=== PATIENT | male | born 1965 | race Caucasian/White ===

== ENCOUNTER 2019-07-04 15:53 | Emergency (ER) | payer BC, OTHER ==
[2019-07-04] MEDS ORDERED: RINGERS SOLUTION,LACTATED 1,000 ML IV ONE ×2 (15:59→17:13)
[2019-07-04] MEDS ORDERED: THIAMINE HCL INJ 200 MG/2 ML VIAL IV ONE (15:59)
[2019-07-04 16:47] LABS: ABSOLUTE BASOPHILS # (AUTO) 0.1 10^3/uL (0.0-0.2); ABSOLUTE EOSINOPHILS # (AUTO) 0.4 10^3/uL (0.0-0.6); ABSOLUTE LYMPHOCYTES (AUTO) 2.3 10^3/uL (0.5-4.7); ABSOLUTE MONOCYTES (AUTO) 0.9 10^3/uL (0.1-1.4); ABSOLUTE NEUT (AUTO) 5.2 10^3/uL (1.7-8.2); BASOPHILS % (AUTO) 0.9 % (0-2); EOSINOPHILS % (AUTO) 4.7 % (0-6); HEMATOCRIT 43.1 % (37.9-51.0); HEMOGLOBIN 15.5 g/dL (13.5-17.0); LYMPHOCYTES % (AUTO) 25.4 % (13-45); MEAN CORPUSCULAR HEMOGLOBIN 32.2 pg (27.0-33.4); MEAN CORPUSCULAR HGB CONC 35.9 g/dL (32.0-36.0); MEAN CORPUSCULAR VOLUME 90 fl (80-97); MONOCYTES % (AUTO) 9.9 % (3-13); PLATELET COUNT 211 10^3/uL (150-450); RED BLOOD COUNT 4.81 10^6/uL (4.35-5.55); RED CELL DISTRIBUTION WIDTH 13.4 % (11.5-14.0); SEGMENTED NEUTROPHILS % (AUTO) 59.1 % (42-78); TOTAL CELLS COUNTED % (AUTO) 100 %; WHITE BLOOD COUNT 8.9 10^3/uL (4.0-10.5)
[2019-07-04 17:01] LABS: ALBUMIN 4.2 g/dL (3.5-5.0); ALKALINE PHOSPHATASE 122 U/L (38-126); ANION GAP 14 (5-19); ASPARTATE AMINO TRANSFERASE 183 U/L (17-59); BILIRUBIN,TOTAL 0.7 mg/dL (0.2-1.3); BLOOD UREA NITROGEN 8 mg/dL (7-20); CALCIUM 8.5 mg/dL (8.4-10.2); CARBON DIOXIDE 23 mmol/L (22-30); CHLORIDE 100 mmol/L (98-107); CREATINE KINASE 40 U/L (55-170); GLUCOSE 100 mg/dL (75-110); POTASSIUM 3.9 mmol/L (3.6-5.0); TOTAL PROTEIN 8.1 g/dL (6.3-8.2)
--- NOTE | 2019-07-04 17:13 | ER Document Report ---
Entered by NATI ALMENDAREZ SCRIBE 07/04/19 1600 Acting as scribe for:SHARMAINE HERRERA MD ED General - General Stated Complaint: UNRESPONSIVE Time Seen by Provider: 07/04/19 15:58 Mode of Arrival: Medic Information source: Emergency Med Personnel Cannot obtain history due to: Intoxicated Notes: This 54 year old male patient presents to the emergency department today via EMS quite intoxicated. EMS was called due to the patient being found "unresponsive" on the ground [address] near the [facility]. He had been seen laying on the ground for at least 2 hours. Bystanders went to roll him over and he began vomiting so they called 911. EMS reports the patient had multiple empty [employer] cans around him. Patient came into the emergency room seemingly unresponsive, but soon became uncooperative, spitting, and seemingly severely EtOH intoxicated. The while that he had with him had a [employer] identification card and his social security card. There was also cards for out reach programs in [place], [place]. At this time we have no way of knowing why he is here in [facility]. He has never been to this emergency room before. - Related Data Allergies/Adverse Reactions: No Known Allergies Allergy (Unverified 07/04/19 16:31) Past Medical History - General Information source: Emergency Med Personnel Cannot obtain history due to: Intoxicated - Social History Smoking Status: Current Every Day Smoker Cigarette use (# per day): Yes Frequency of alcohol use: Heavy Family History: Reviewed & Not Pertinent - Medical History Medical History: Negative Surgical Hx: Negative Review of Systems - Review of Systems -: Yes ROS unobtainable due to patient's medical condition Physical Exam - Vital signs Vitals: Temp 97.8 F 07/04/19 15:55 - General General appearance: Other - Smells of EtOH. Very intoxicated. - HEENT Head: Normocephalic, Atraumatic Eyes: Normal - Pupils are small and reactive. Conjunctiva: Injected - Has a bloodshot alcohol intoxicated appearance. - Respiratory Respiratory status: No respiratory distress Chest status: Nontender Breath sounds: Normal - Cardiovascular Rhythm: Regular Heart sounds: Normal auscultation Murmur: No - Abdominal Inspection: Normal Distension: No distension - Back Back: Normal - Extremities General upper extremity: Normal inspection General lower extremity: Normal inspection - Neurological Notes: Patient moves all extremities without difficulty. He is able to coordinate his spitting. He is extremely intoxicated so we cannot communicate with him. - Psychological Associated symptoms: Other - intoxicated - Skin Skin Temperature: Warm Skin Moisture: Dry Skin Color: Flushed Course - Re-evaluation Re-evalutation: 07/04/19 19:11 Patient's EtOH level was 369, urine drug screen is positive for marijuana. 07/04/19 19:54 The patient will not be sober enough to be discharged until after 6 AM tomorrow morning. - Vital Signs Vital signs: Temp Pulse Resp BP Pulse Ox 97.8 F 14 141/90 H 95 07/04/19 15:58 07/04/19 19:00 07/04/19 18:55 07/04/19 19:00 - Laboratory Result Diagrams: 07/04/19 16:07 07/04/19 16:07 Laboratory results interpreted by me: 07/04/19 16:07 AST 183 H ALT 112 H Creatine Kinase 40 L Serum Alcohol 369 H* - Diagnostic Test Radiology reviewed: Image reviewed, Reports reviewed - Chest x-ray does not show acute cardiopulmonary process. CT scan of the head does not show an acute process. - EKG Interpretation by Me EKG shows normal: Sinus rhythm, Bryant, Intervals, QRS Complexes, ST-T Waves Rate: Normal - 91 Rhythm: NSR P Waves: LAE When compared to previous EKG there are: Previous EKG unavailable - Transfer of Care Care transferred to following provider: Dr. Herrera Notes: 07/04/19 21:03 Patient will have an alcohol level approaching 100 about 6:00 in the morning. Critical Care Note - Critical Care Note Total time excluding time spent on procedures (mins): 35 Discharge - Discharge Clinical Impression: Drug abuse, marijuana, Unresponsive Acute alcohol intoxication Qualifiers: Complication of substance-induced condition: with unspecified complication Qualified Code(s): F10.929 - Alcohol use, unspecified with intoxication, unspecified Condition: Stable Disposition: HOME, SELF-CARE Additional Instructions: Acute Alcohol Intoxication Your evaluation revealed very high levels of alcohol. You can from drinking a large amount of alcohol rapidly! Further, there's the risk of falls, traffic accidents, and fights. A high portion (about 50 percent) of the serious injuries seen in hospital emergency rooms are caused by alcohol. Alcohol overdosage is usually due to an underlying emotional or psychiatric problem. You may benefit from counselling. If "binge" drinking is an ongoing problem for you, or if you drink ANY AMOUNT of alcohol EVERY day, you most likely have a tendency to alcoholism. You should avoid alcohol totally. We can refer you for treatment. Persons with alcohol problems are often also prone to other addictions -- you should discuss any use of medications or drugs with the doctor. You should be watched at home for the next several hours by someone who has not been drinking. Get extra fluids for the next 24 hours. Call the doctor if there is repeated vomiting, increasing headache, decreasing level of alertness, or any other worsening. I personally performed the services described in the documentation, reviewed and edited the documentation which was dictated to the scribe in my presence, and it accurately records my words and actions.
--- NOTE | 2019-07-04 17:19 | RADIOLOGY REPORT (SQ) ---
EXAM DESCRIPTION: CHEST SINGLE VIEW IMAGES COMPLETED DATE/TIME: 07/04/2019 5:05 pm REASON FOR STUDY: EtOH, unresponsive COMPARISON: None. EXAM PARAMETERS: NUMBER OF VIEWS: One view. TECHNIQUE: An AP view of the chest was obtained. RADIATION DOSE: NA LIMITATIONS: None. FINDINGS: LUNGS AND PLEURA: Calcified 2.6 x 1.5 cm nodule that projects within the left upper lobe. There is no acute consolidation, ground-glass opacification, pleural effusion or pneumothorax. MEDIASTINUM AND HILAR STRUCTURES: No mediastinal or hilar contour abnormality. HEART AND VASCULAR STRUCTURES: The cardiac silhouette is borderline enlarged. BONES: No acute findings. HARDWARE: None in the chest. OTHER: No other finding. IMPRESSION: No acute cardiopulmonary process. TECHNICAL DOCUMENTATION: JOB ID: [id number] 2010 [employer]- All Rights Reserved Reading location - IP/workstation name: [email or web address]
[2019-07-04 17:23] LABS: ALCOHOL 369 mg/dL (NONE DETECTED)
[2019-07-04 17:52] LABS: APPEARANCE,URINE CLEAR; BILIRUBIN,URINE NEGATIVE (NEGATIVE); COLOR,URINE STRAW; GLUCOSE, URINE NEGATIVE (NEGATIVE); KETONES,URINE NEGATIVE (NEGATIVE); LEUKOCYTE ESTERASE,URINE NEGATIVE (NEGATIVE); NITRITE,URINE NEGATIVE (NEGATIVE); PROTEIN,URINE NEGATIVE (NEGATIVE); URINE SPECIFIC GRAVITY 1.004; UROBILINOGEN,URINE NEGATIVE mg/dL (<2.0)
[2019-07-04 17:59] LABS: URINE AMPHETAMINES SCREEN NEGATIVE; URINE BARBITURATES SCREEN NEGATIVE; URINE BENZODIAZEPINES SCREEN NEGATIVE; URINE COCAINE SCREEN NEGATIVE; URINE METHADONE SCREEN NEGATIVE; URINE PHENCYCLIDINE SCREEN NEGATIVE
[2019-07-04 18:00] LABS: URINE MARIJUANA (THC) SCREEN UNCONFIRMED POSITIVE
--- NOTE | 2019-07-04 19:08 | RADIOLOGY REPORT (SQ) ---
EXAM DESCRIPTION: CT HEAD WITHOUT IMAGES COMPLETED DATE/TIME: 07/04/2019 5:54 pm REASON FOR STUDY: EtOH, unresponsive, altered mental status COMPARISON: None. TECHNIQUE: Axial images acquired through the brain without intravenous contrast. Images reviewed wi th bone, brain and subdural windows. Additional sagittal and coronal reconstructions were generated. Images stored on PACS. All CT scanners at this facility use dose modulation, iterative reconstruction, and/or weight based d osing when appropriate to reduce radiation dose to as low as reasonably achievable (ALARA). [facility]: Dose Right [facility]: CareDose [facility]: Dose Right [facility]: Teradose 4D [facility]: Smart Couple RADIATION DOSE: CT Rad equipment meets quality standard of care and radiation dose reduction techniq ues were employed. CTDIvol: 55.2 mGy. DLP: 1084 mGy-cm. mGy. LIMITATIONS: None. FINDINGS: VENTRICLES: Normal size and contour. CEREBRUM: No masses. No hemorrhage. No midline shift. No evidence for acute infarction. Normal gra y/white matter differentiation. No areas of low density in the white matter. CEREBELLUM: No masses. No hemorrhage. No alteration of density. No evidence for acute infarction. EXTRAAXIAL SPACES: No fluid collections. No masses. ORBITS AND GLOBE: No intra- or extraconal masses. Normal contour of globe without masses. CALVARIUM: No fracture. PARANASAL SINUSES: No fluid or mucosal thickening. SOFT TISSUES: No mass or hematoma. OTHER: No other significant finding. IMPRESSION: No acute intracranial hemorrhage, mass, or evidence of acute territorial infarct. EVIDENCE OF ACUTE STROKE: NO. COMMENT: Quality ID # [id number]: Final reports with documentation of one or more dose reduction techniques (e.g., Automated exposure control, adjustment of the mA and/or kV according to patient size, use of iterative reconstruction technique) TECHNICAL DOCUMENTATION: JOB ID: [id number] 2010 [employer]- All Rights Reserved Reading location - IP/workstation name: [email or web address]
--- NOTE | 2019-07-04 21:42 | EKG REPORT ---
SEVERITY:- BORDERLINE ECG - SINUS RHYTHM PROBABLE LEFT ATRIAL ABNORMALITY : Confirmed by: Briseida Mcdonald MD 04-Jul-2019 21:41:37
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
[2019-07-05 10:27] VITALS: BP 167/83
== END 2019-07-05 10:27 | disposition home or self-care (01) ==
LOC: ER 15:53
DX: F10.129 Alcohol abuse with intoxication, unspecified (principal); Y90.8 Blood alcohol level of 240 mg/100 ml or more; F12.10 Cannabis abuse, uncomplicated; F17.210 Nicotine dependence, cigarettes, uncomplicated
CPT/HCPCS: 93005; 99291; 96361; 96374; 36415; 80307 ×2; 82550; 85025; 80053; 81001; 84484; 71045; 70450; 93010; J3411; J7120

== ENCOUNTER 2019-07-07 19:57 | Emergency (ER) | payer BC ==
--- NOTE | 2019-07-07 20:24 | ER Document Report ---
ED Medical Screen (RME) - General Chief Complaint: Abdominal Pain >50 Stated Complaint: MEDICAL CLEARANCE/ABDOMINAL PAIN Time Seen by Provider: 07/07/19 20:23 Mode of Arrival: Ambulatory Information source: Patient Notes: 54-year-old male presented to ED for complaint of right upper quadrant abdominal pain times a week and a half. He states he is extremely bad he has had nausea gagging all day. He states he does smoke a pack a day drinks 10-15 beers a day and does use a little marijuana. He states the pain is so bad that he cannot do anything due to the pain. He is alert oriented respirations regular nonlabored speaking in full sentences. I have greeted and performed a rapid initial assessment of this patient. A comprehensive ED assessment and evaluation of the patient, analysis of test results and completion of medical decision making process will be conducted by an additional ED providers. - Related Data Allergies/Adverse Reactions: No Known Allergies Allergy (Unverified 07/04/19 16:31) Physical Exam - Vital signs Vitals: Temp Pulse Resp BP Pulse Ox 98.9 F 102 H 16 162/84 H 98 07/07/19 20:01 07/07/19 20:01 07/07/19 20:01 07/07/19 20:01 07/07/19 20:01 Course - Vital Signs Vital signs: Temp Pulse Resp BP Pulse Ox 98.9 F 102 H 16 162/84 H 98 07/07/19 20:01 07/07/19 20:01 07/07/19 20:01 07/07/19 20:01 07/07/19 20:01
[2019-07-07] MEDS ORDERED: ONDANSETRON 4 MG TAB.RAPDIS PO ONE (20:25)
--- NOTE | 2019-07-07 21:07 | ER Document Report ---
ED General - General Chief Complaint: Abdominal Pain >50 Stated Complaint: MEDICAL CLEARANCE/ABDOMINAL PAIN Time Seen by Provider: 07/07/19 20:23 Mode of Arrival: Ambulatory Information source: Patient Notes: triage note Pt presents to ED for right upper abdominal pain that started 1.5 weeks ago. The pt reports nausea. No vomiting. The pt is an every day drinker. The pt did a have positive suicide screening. He has depressed thoughts. He is suicidal. He reports he has a plan to overdose but does not have plans to act on these thoughts. He would like to be medically cleared so he can do to [facility]. The pt is aox4. Resps even and unlabored. sabi note 54-year-old male presented to ED for complaint of right upper quadrant abdominal pain times a week and a half. He states he is extremely bad he has had nausea gagging all day. He states he does smoke a pack a day drinks 10-15 beers a day and does use a little marijuana. He states the pain is so bad that he cannot do anything due to the pain. He is alert oriented respirations regular nonlabored speaking in full sentences. my not 54-year-old male arrives with 10 days history of chills and severe pain to his right upper abdomen pointing to his right upper quadrant radiating to his back right CVA area. He reports he thinks it may be his gallbladder. Patient smokes 1 pack a day since he was 9 years old and also drinks whiskey and beer and some marijuana. Patient reports he is been having 6 months of a red rash all over his skin arms legs. Patient supports a mccall and a ponytail. Patient reports his abdominal pain is a 9 out of 10. He has had poor appetite today. He reported to triage nurse that we he was suicidal but he does not have any plans to act on these thoughts. At this time we will consider medical over psychiatric TRAVEL OUTSIDE OF THE [place] IN LAST 30 DAYS: No - HPI Onset: This morning Onset/Duration: Sudden Quality of pain: Achy Severity: Severe Pain Level: 4 Associated symptoms: Chills, Fever Exacerbated by: Food Similar symptoms previously: No Recently seen / treated by doctor: No - Related Data Allergies/Adverse Reactions: No Known Allergies Allergy (Unverified 07/04/19 16:31) Past Medical History - General Information source: Patient - Social History Smoking Status: Current Every Day Smoker Cigarette use (# per day): Yes Chew tobacco use (# tins/day): No Smoking Education Provided: Yes Frequency of alcohol use: Heavy Drug Abuse: Marijuana Lives with: Family Family History: Reviewed & Not Pertinent Patient has homicidal ideation: No Review of Systems - Review of Systems Constitutional: See HPI, Chills, Malaise EENT: No symptoms reported Cardiovascular: No symptoms reported Respiratory: No symptoms reported Gastrointestinal: See HPI, Abdominal pain, Poor appetite, Poor fluid intake Genitourinary: No symptoms reported Male Genitourinary: No symptoms reported Musculoskeletal: No symptoms reported Skin: No symptoms reported Hematologic/Lymphatic: No symptoms reported Neurological/Psychological: See HPI, Suicidal ideation Physical Exam - Vital signs Vitals: Temp Pulse Resp BP Pulse Ox 98.9 F 102 H 16 162/84 H 98 07/07/19 20:01 07/07/19 20:01 07/07/19 20:01 07/07/19 20:01 07/07/19 20:01 Interpretation: Hypertensive, Tachycardic - General General appearance: Alert - HEENT Head: Normocephalic, Atraumatic Eyes: Normal Pupils: PERRL Nasal: Normal Mucous membranes: Dry Pharynx: Erythema Neck: Normal - Respiratory Respiratory status: No respiratory distress Chest status: Nontender Breath sounds: Normal Chest palpation: Normal - Cardiovascular Rhythm: Tachycardia Heart sounds: Normal auscultation Murmur: No - Abdominal Inspection: Normal Distension: No distension Bowel sounds: Normal Tenderness: Tender Organomegaly: No organomegaly - Back Back: Tender - Extremities General upper extremity: Normal inspection General lower extremity: Normal inspection - Neurological Neuro grossly intact: Yes Cognition: Normal Orientation: AAOx4 [place] Coma Scale Eye Opening: Spontaneous Vitaliy Coma Scale Verbal: Oriented [place] Coma Scale Motor: Obeys Commands Vitaliy Coma Scale Total: 15 Speech: Normal Motor strength normal: LUE, RUE, LLE, RLE Sensory: Normal - Psychological Associated symptoms: Anxious, Decreased appetite - Skin Skin Temperature: Warm Skin Color: Hernan, Dusky Course - Vital Signs Vital signs: Temp Pulse Resp BP Pulse Ox 98.9 F 102 H 20 132/83 H 95 07/07/19 20:21 07/07/19 20:01 07/08/19 01:01 07/08/19 01:01 07/08/19 01:01 - Laboratory Result Diagrams: 07/07/19 22:22 07/07/19 22:22 Laboratory results interpreted by me: 07/07/19 07/07/19 22:22 22:22 MCHC 36.1 H Eos % (Auto) 11.9 H Absolute Eos (auto) 0.9 H AST 184 H ALT 150 H Alkaline Phosphatase 131 H Total Protein 8.7 H Acetaminophen < 10 L - Diagnostic Test Radiology reviewed: Reports reviewed Radiology results interpreted by me: 07/08/19 00:22 Patient with cholelithiasis but no acute cholecystitis - EKG Interpretation by Me EKG shows normal: Sinus rhythm Rate: Normal Rhythm: NSR Critical Care Note - Critical Care Note Total time excluding time spent on procedures (mins): 90 Comments: Patient was evaluated by [facility] and patient has a room waiting for him at [facility].. I informed patient of his cholelithiasis but no acute michael cystitis and that he should follow-up with surgeon of choice as outpatient for possible cholecystectomy in the near future. We will write for [place] and Zofran to go as needed for nausea and pain. Discharge - Discharge Clinical Impression: Suicidal thoughts, LFT elevation, Cigarette smoker Abdominal pain Qualifiers: Abdominal location: right upper quadrant Qualified Code(s): R10.11 - Right upper quadrant pain Alcohol addiction Qualifiers: Substance use status: unspecified alcohol-induced disorder Qualified Code(s): F10.29 - Alcohol dependence with unspecified alcohol-induced disorder Cholelithiasis Qualifiers: Cholelithiasis location: gallbladder Cholecystitis presence: without cholecystitis Condition: Good Disposition: HOME, SELF-CARE Additional Instructions: Go directly to [facility] and use medications as directed to include [place] and Zofran packs to go.
[2019-07-07 21:21] LABS: APPEARANCE,URINE CLEAR; BILIRUBIN,URINE NEGATIVE (NEGATIVE); COLOR,URINE YELLOW; GLUCOSE, URINE NEGATIVE (NEGATIVE); KETONES,URINE NEGATIVE (NEGATIVE); PROTEIN,URINE NEGATIVE (NEGATIVE); URINE SPECIFIC GRAVITY 1.009; UROBILINOGEN,URINE NEGATIVE mg/dL (<2.0)
--- NOTE | 2019-07-07 22:06 | RADIOLOGY REPORT (SQ) ---
EXAM DESCRIPTION: US ABDOMEN LIMITED COMPLETED DATE/TME: 07/07/2019 20:26 CLINICAL HISTORY: 54 years Male Right upper quadrant/flank pain COMPARISON: None. TECHNIQUE: Transabdominal grayscale imaging performed to evaluate the abdomen. FINDINGS: Pancreas is unremarkable. Patent IVC. Liver is normal in size of focal lesion. The aorta is normal in caliber. Patent hepatopedal portal vein. Gallbladder wall is at the upper limits of normal. Common duct measures 4 mm. Echogenic foci in the fundus suggesting stones. Unremarkable right kidney. Positive Claros's sign. IMPRESSION: Cholelithiasis with positive sonographic Claros sign. No additional evidence to suggest acute cholecystitis. If there is continued concern recommend nuclear medicine hepatobiliary study
[2019-07-07 22:34] LABS: ABSOLUTE BASOPHILS # (AUTO) 0.1 10^3/uL (0.0-0.2); ABSOLUTE EOSINOPHILS # (AUTO) 0.9 10^3/uL (0.0-0.6); ABSOLUTE LYMPHOCYTES (AUTO) 2.7 10^3/uL (0.5-4.7); ABSOLUTE MONOCYTES (AUTO) 0.6 10^3/uL (0.1-1.4); ABSOLUTE NEUT (AUTO) 3.5 10^3/uL (1.7-8.2); BASOPHILS % (AUTO) 0.8 % (0-2); EOSINOPHILS % (AUTO) 11.9 % (0-6); HEMATOCRIT 41.5 % (37.9-51.0); LYMPHOCYTES % (AUTO) 34.5 % (13-45); MEAN CORPUSCULAR HEMOGLOBIN 32.2 pg (27.0-33.4); MEAN CORPUSCULAR HGB CONC 36.1 g/dL (32.0-36.0); MEAN CORPUSCULAR VOLUME 89 fl (80-97); MONOCYTES % (AUTO) 7.5 % (3-13); PLATELET COUNT 188 10^3/uL (150-450); RED BLOOD COUNT 4.65 10^6/uL (4.35-5.55); RED CELL DISTRIBUTION WIDTH 13.1 % (11.5-14.0); SEGMENTED NEUTROPHILS % (AUTO) 45.3 % (42-78); TOTAL CELLS COUNTED % (AUTO) 100 %; WHITE BLOOD COUNT 7.7 10^3/uL (4.0-10.5)
[2019-07-07 23:04] LABS: ALBUMIN 4.5 g/dL (3.5-5.0); ALCOHOL 108 mg/dL (NONE DETECTED); ALKALINE PHOSPHATASE 131 U/L (38-126); ANION GAP 13 (5-19); ASPARTATE AMINO TRANSFERASE 184 U/L (17-59); BILIRUBIN,DIRECT 0.1 mg/dL (0.0-0.4); BILIRUBIN,TOTAL 0.7 mg/dL (0.2-1.3); BLOOD UREA NITROGEN 14 mg/dL (7-20); CALCIUM 8.6 mg/dL (8.4-10.2); CARBON DIOXIDE 22 mmol/L (22-30); CHLORIDE 104 mmol/L (98-107); GLUCOSE 87 mg/dL (75-110); POTASSIUM 4.2 mmol/L (3.6-5.0); SALICYLATE 2.7 mg/dL (2.0-20.0); TOTAL PROTEIN 8.7 g/dL (6.3-8.2)
[2019-07-07 23:05] LABS: ACETAMINOPHEN < 10 ug/mL (10-30)
[2019-07-07] MEDS ORDERED: KETOROLAC TROMETHAMINE INJ/PF 30 MG/1 ML SDV IV ONE (23:38)
[2019-07-07] MEDS ORDERED: PROCHLORPERAZINE EDISYLATE INJ 10 MG/2 ML VIAL IV ONE (23:38)
[2019-07-08 00:18] LABS: URINE AMPHETAMINES SCREEN NEGATIVE; URINE BARBITURATES SCREEN NEGATIVE; URINE BENZODIAZEPINES SCREEN NEGATIVE; URINE COCAINE SCREEN NEGATIVE; URINE MARIJUANA (THC) SCREEN NEGATIVE; URINE METHADONE SCREEN NEGATIVE; URINE PHENCYCLIDINE SCREEN NEGATIVE
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
--- NOTE | 2019-07-08 01:15 | RADIOLOGY REPORT (SQ) ---
CLINICAL HISTORY: r cva and ruq pain. CREAT 0.58 COMPARISON: None. TECHNIQUE: CT ABDOMEN PELVIS WITH IV CONTRAST on 07/07/2019 9:16 PM CDT This exam was performed according to our departmental dose-optimization program, which includes automated exposure control, adjustment of the mA and/or kV according to patient size and/or use of iterative reconstruction technique. FINDINGS: Lower lungs are clear. Abdomen: Liver is fatty in attenuation. There is no biliary dilatation. Gallbladder contains a small gallstone. The pancreas and spleen are normal in appearance. The adrenal glands and kidneys are unremarkable. Abdominal aorta is normal in course and caliber without aneurysm. There is no free air. There is no retroperitoneal adenopathy. Pelvis: There is no bowel obstruction. Urinary bladder is unremarkable. There is no free fluid. Appendix is normal. Skeleton: There are no acute osseous findings. No suspicious bony lesions. IMPRESSION: No acute process.
[2019-07-08] MEDS ORDERED: ONDANSETRON ODT 4 MG TAB (6 TAB/ER DISP) PO PRN (02:02)
[2019-07-08] MEDS ORDERED: HYDROCODONE/ACETAMINOPHEN 5-325 MG (6 TAB/ER DISP) PO PRN (02:02)
[2019-07-08 03:48] VITALS: BP 169/96
--- NOTE | 2019-07-08 14:28 | EKG REPORT ---
SEVERITY:- NORMAL ECG - SINUS RHYTHM : Confirmed by: Briseida Mcdonald MD 08-Jul-2019 14:27:40
== END 2019-07-08 04:07 | disposition home or self-care (01) ==
LOC: ER 19:57
DX: K80.20 Calculus of gallbladder without cholecystitis without obstruction (principal); F10.29 Alcohol dependence with unspecified alcohol-induced disorder; R45.851 Suicidal ideations; R10.11 Right upper quadrant pain; F17.210 Nicotine dependence, cigarettes, uncomplicated; R79.89 Other specified abnormal findings of blood chemistry; R11.0 Nausea; R21 Rash and other nonspecific skin eruption; R63.0 Anorexia; F12.10 Cannabis abuse, uncomplicated; R53.81 Other malaise; R68.83 Chills (without fever); R00.0 Tachycardia, unspecified
CPT/HCPCS: 93005; 99291; 99292; 96374; 96375; 36415; 80307 ×4; 83690; 85025; 80053; 81001; 76705; 74177; 93010; S0119; J1885; J0780

== ENCOUNTER 2019-08-31 10:34 | Inpatient (IN) | payer BC ==
[2019-08-31] MEDS ORDERED: NORMAL SALINE 1000 ML 1,000 ML IV ONE ×2 (11:46→20:11)
[2019-08-31] MEDS ORDERED: MORPHINE SULFATE 10 MG/ML INJ IV ONE (11:46)
[2019-08-31 11:59] LABS: ABSOLUTE BASOPHILS # (AUTO) 0.1 10^3/uL (0.0-0.2); ABSOLUTE LYMPHOCYTES (AUTO) 1.6 10^3/uL (0.5-4.7); ABSOLUTE NEUT (AUTO) 9.6 10^3/uL (1.7-8.2); BASOPHILS % (AUTO) 0.7 % (0-2); EOSINOPHILS % (AUTO) 0.1 % (0-6); HEMOGLOBIN 19.9 g/dL (13.5-17.0); LYMPHOCYTES % (AUTO) 12.7 % (13-45); MEAN CORPUSCULAR HEMOGLOBIN 31.7 pg (27.0-33.4); MEAN CORPUSCULAR HGB CONC 34.8 g/dL (32.0-36.0); MEAN CORPUSCULAR VOLUME 91 fl (80-97); MONOCYTES % (AUTO) 8.2 % (3-13); PLATELET COUNT 242 10^3/uL (150-450); RED BLOOD COUNT 6.26 10^6/uL (4.35-5.55); SEGMENTED NEUTROPHILS % (AUTO) 78.3 % (42-78); TOTAL CELLS COUNTED % (AUTO) 100 %; WHITE BLOOD COUNT 12.2 10^3/uL (4.0-10.5)
[2019-08-31] MEDS ORDERED: ONDANSETRON HCL INJ/PF 4 MG/2 ML SDV IV ONE ×2 (12:02→20:15)
[2019-08-31 12:06] LABS: ALBUMIN 4.7 g/dL (3.5-5.0); ALKALINE PHOSPHATASE 122 U/L (38-126); ANION GAP 9 (5-19); ASPARTATE AMINO TRANSFERASE 663 U/L (17-59); BILIRUBIN,DIRECT 0.3 mg/dL (0.0-0.4); BILIRUBIN,TOTAL 1.2 mg/dL (0.2-1.3); BLOOD UREA NITROGEN 19 mg/dL (7-20); CALCIUM 9.6 mg/dL (8.4-10.2); CARBON DIOXIDE 26 mmol/L (22-30); CHLORIDE 103 mmol/L (98-107); GLUCOSE 200 mg/dL (75-110); POTASSIUM 5.3 mmol/L (3.6-5.0); TOTAL PROTEIN 9.8 g/dL (6.3-8.2)
[2019-08-31 12:12] LABS: ALCOHOL < 10 mg/dL (NONE DETECTED)
--- NOTE | 2019-08-31 12:47 | RADIOLOGY REPORT (SQ) ---
EXAM DESCRIPTION: CHEST SINGLE VIEW IMAGES COMPLETED DATE/TIME: 08/31/2019 12:34 pm REASON FOR STUDY: cough COMPARISON: 07/04/2019 EXAM PARAMETERS: NUMBER OF VIEWS: One view. TECHNIQUE: Single frontal radiographic view of the chest acquired. RADIATION DOSE: NA LIMITATIONS: None. FINDINGS: LUNGS AND PLEURA: Re- demonstration of an apparent left upper lobe calcified granuloma. N o new focal consolidation, pleural effusion, or pneumothorax. MEDIASTINUM AND HILAR STRUCTURES: No masses. Contour normal. HEART AND VASCULAR STRUCTURES: Heart normal in size. Normal vasculature. BONES: Subacute minimally displaced transverse fractures of right ribs 9 in 10 laterally. HARDWARE: None in the chest. OTHER: No other significant finding. IMPRESSION: No evidence of acute cardiopulmonary abnormality. Incidental finding of subacute mildly displaced transverse fractures of right ribs 9 and 10. TECHNICAL DOCUMENTATION: JOB ID: [id number] 2010 [employer]- All Rights Reserved Reading location - IP/workstation name: [email or web address]
--- NOTE | 2019-08-31 13:08 | RADIOLOGY REPORT (SQ) ---
EXAM DESCRIPTION: CTA HEAD IMAGES COMPLETED DATE/TIME: 08/31/2019 12:31 pm REASON FOR STUDY: right arm numbness/drift COMPARISON: 07/04/2019 TECHNIQUE: Post IV contrast scanning, thin section axial imaging through the brain to evaluate the a rterial structures. Source and MIP images are saved and reviewed on PACS. Advanced 3D imaging as volume-rendering, MIPs, SSD performed? yes All CT scanners at this facility use dose modulation, iterative reconstruction, and/or weight based d osing when appropriate to reduce radiation dose to as low as reasonably achievable (ALARA). [facility]: Dose Right [facility]: CareDose [facility]: Dose Right [facility]: Teradose 4D [facility]: [place] IT CONTRAST TYPE AND DOSE: 70 mL Omnipaque 350- low osmolar. RENAL FUNCTION: BUN 19; creatinine 0.8 LIMITATIONS: None. FINDINGS: [place]: The anterior, middle, posterior cerebral arteries are all patent. No ev idence of aneurysm or focal stenosis. POSTERIOR CIRCULATION: The distal vertebral arteries are patent as is the basilar artery. No aneurysm . BRAIN: No gross enhancing lesions as visualized. The superior cerebral hemispheres are not included in the field of view. BONES: Intact as visualized. SINUSES: No fluid or mucosal thickening. OTHER: No other significant finding. IMPRESSION: NO CTA EVIDENCE OF STENOSIS OR ANEURYSM OF THE [place] OF LUCERO. TECHNICAL DOCUMENTATION: JOB ID: [id number] Quality ID # [id number]: Final reports with documentation of one or more dose reduction techniques (e.g., Au tomated exposure control, adjustment of the mA and/or kV according to patient size, use of iterative reconstruction technique) 2010 [employer]- All Rights Reserved Reading location - IP/workstation name: [email or web address]
--- NOTE | 2019-08-31 13:09 | RADIOLOGY REPORT (SQ) ---
EXAM DESCRIPTION: CTA NECK IMAGES COMPLETED DATE/TIME: 08/31/2019 12:32 pm REASON FOR STUDY: right arm numbness/drift COMPARISON: None. TECHNIQUE: Axial dynamic scanning technique with dynamic contrast enhancement through the extra-craft worker nial carotid and vertebral arteries. Multiplanar reconstruction. 3-D MIPS and Volume-rendered imag es acquired at the workstation and saved to PACS. Images are reviewed in soft tissue, bone, lung w indows. All CT scanners at this facility use dose modulation, iterative reconstruction, and/or weight based d osing when appropriate to reduce radiation dose to as low as reasonably achievable (ALARA). [facility]: Dose Right [facility]: CareDose [facility]: Dose Right [facility]: Teradose 4D [facility]: [place] CONTRAST TYPE AND DOSE: 70 mL Omnipaque 350- low osmolar. RENAL FUNCTION: BUN 19; creatinine 0.8 LIMITATIONS: None. FINDINGS: AORTIC ARCH: Normal three-vessel origin. Bilateral subclavian arteries are patent. No d issection. RIGHT CAROTIDS: Patent common, internal and external carotid arteries without suggestion of significa nt stenosis or irregular plaque. No dissection. RIGHT VERTEBRAL: Patent. No dissection. LEFT CAROTIDS: Patent common, internal and external carotid arteries without suggestion of significan t stenosis or irregular plaque. No dissection. LEFT VERTEBRAL: Patent. No dissection. OTHER: No other significant finding. OTHER: 3-D reconstructions confirm findings. IMPRESSION: NORMAL CTA OF THE EXTRA-CRANIAL CAROTID AND VERTEBRAL ARTERIES. COMMENT: Quality ID #[id number]: Measurements of distal internal carotid diameter were used as the denomina tor for stenosis measurement. TECHNICAL DOCUMENTATION: JOB ID: [id number] Quality ID # 436: Final reports with documentation of one or more dose reduction techniques (e.g., Au tomated exposure control, adjustment of the mA and/or kV according to patient size, use of iterative reconstruction technique) 2010 [employer]- All Rights Reserved Reading location - IP/workstation name: [email or web address]
--- NOTE | 2019-08-31 13:15 | EKG REPORT ---
SEVERITY:- NORMAL ECG - SINUS RHYTHM : Confirmed by: Tim Jc 31-Aug-2019 13:14:58
--- NOTE | 2019-08-31 16:04 | RADIOLOGY REPORT (SQ) ---
EXAM DESCRIPTION: SHOULDER RIGHT 2 OR MORE VIEWS IMAGES COMPLETED DATE/TIME: 08/31/2019 3:29 pm REASON FOR STUDY: swelling/pain COMPARISON: None. NUMBER OF VIEWS: Three views. TECHNIQUE: Internal rotation, external rotation, and Y view images acquired of the right shoulder. LIMITATIONS: None. FINDINGS: MINERALIZATION: Normal. BONES: No acute fracture. No worrisome bone lesions. JOINTS: Mild acromioclavicular arthropathy. VISUALIZED LUNGS AND RIBS: No pneumothorax. No rib fracture on the images provided. SOFT TISSUES: No radiopaque foreign body. OTHER: No other significant finding. IMPRESSION: Mild acromioclavicular arthropathy. No evidence of acute osseous injury. TECHNICAL DOCUMENTATION: JOB ID: [id number] 2010 [employer]- All Rights Reserved Reading location - IP/workstation name: [email or web address]
--- NOTE | 2019-08-31 18:53 | RADIOLOGY REPORT (SQ) ---
EXAM DESCRIPTION: VENOUS UNILATERAL UPPER IMAGES COMPLETED DATE/TIME: 08/31/2019 6:40 pm REASON FOR STUDY: swelling/painful COMPARISON: None. TECHNIQUE: Dynamic and static guerrero scale and color images acquired of the right arm venous system. S elected spectral images acquired with additional compression and augmentation maneuvers. The contrala teral subclavian vein and internal jugular vein were also imaged. Images stored on PACS. LIMITATIONS: None. FINDINGS: INTERNAL JUGULAR VEIN: Normal phasicity, compression, augmentation. No visualized echogeni c material on guerrero scale. No defects on color images. Comparison opposite side normal. SUBCLAVIAN VEIN: Normal compression, augmentation. No visualized echogenic material on guerrero scale. No defects on color images. AXILLARY VEIN: Normal compression, augmentation. No visualized echogenic material on guerrero scale. No d efects on color images. BRACHIAL VEIN: Normal compression, augmentation. No visualized echogenic material on guerrero scale. No d efects on color images. BASILIC VEIN: Normal compression, augmentation. No visualized echogenic material on guerrero scale. No de fects on color images. CEPHALIC VEIN: Normal compression, augmentation. No visualized echogenic material on guerrero scale. No d efects on color images. OTHER: No other significant finding. CONTRALATERAL SUBCLAVIAN VEIN AND INTERNAL JUGULAR VEIN: Normal phasicity, compression and augmentation. No visualized echogenic material on guerrero scale. No de fects on color images. IMPRESSION: NO EVIDENCE DVT OR SVT IN THE RIGHT ARM. TECHNICAL DOCUMENTATION: JOB ID: [id number] 2010 [employer]- All Rights Reserved Reading location - IP/workstation name: [email or web address]
[2019-08-31 19:09] LABS: ANION GAP 8 (5-19); BLOOD UREA NITROGEN 17 mg/dL (7-20); CALCIUM 8.4 mg/dL (8.4-10.2); CARBON DIOXIDE 22 mmol/L (22-30); CHLORIDE 104 mmol/L (98-107); GLUCOSE 109 mg/dL (75-110); POTASSIUM 4.4 mmol/L (3.6-5.0)
--- NOTE | 2019-08-31 19:24 | ER Document Report ---
ED General - General Chief Complaint: Numbness of Arm Stated Complaint: SHORTNESS OF BREATH Time Seen by Provider: 08/31/19 11:11 Mode of Arrival: Ambulatory Information source: Patient TRAVEL OUTSIDE OF THE [place] IN LAST 30 DAYS: No - HPI Notes: Patient complains of right arm numbness. He states he is had this for 3 to 4 days. He states he is also noticed that the right arm is been swollen. He denies any trauma or injuries to this area. He states that he is also had generalized body aches with nausea vomiting and some loose stools is been going on for 3 to 4 days. He has had some cough as well. He denies any fever sweats or chills. He states that the right arm is also been pain that he describes is more of a discomfort. This is been constant. It is worse with movement and better with rest. It does radiate up the right arm. Is been moderate in intensity. - Related Data Allergies/Adverse Reactions: No Known Allergies Allergy (Unverified 07/04/19 16:31) Past Medical History - General Information source: Patient - Social History Smoking Status: Current Every Day Smoker Frequency of alcohol use: Occasional Drug Abuse: None Family History: Reviewed & Not Pertinent - Past Medical History Cardiac Medical History: Reports: Hx Hypertension Psychiatric Medical History: Reports: Hx Depression - anxiety, panic attacks Past Surgical History: Reports: Hx Orthopedic Surgery - left knee x2 Review of Systems - Review of Systems Constitutional: Chills, Malaise, Weakness Cardiovascular: denies: Chest pain, Palpitations Respiratory: Cough. denies: Short of breath -: Yes All other systems reviewed and negative Physical Exam - Vital signs Vitals: Temp Pulse Resp BP Pulse Ox 97.5 F 93 16 149/97 H 98 08/31/19 10:35 08/31/19 10:35 08/31/19 10:35 08/31/19 10:35 08/31/19 10:35 Interpretation: Normal - General General appearance: Appears well, Alert - HEENT Head: Normocephalic, Atraumatic Eyes: Normal Pupils: PERRL - Respiratory Respiratory status: No respiratory distress Chest status: Nontender Breath sounds: Normal Chest palpation: Normal - Cardiovascular Rhythm: Regular Heart sounds: Normal auscultation Murmur: No - Abdominal Inspection: Normal Distension: No distension Bowel sounds: Normal Tenderness: Nontender Organomegaly: No organomegaly - Back Back: Normal, Nontender - Extremities General upper extremity: Other - Left upper extremities unremarkable. Right upper extremity has significant swelling between the elbow and shoulder. It is slightly erythematous and slightly warmer than the left. He does have 2+ radial pulses bilaterally. Patient has some abrasions on the right shoulder that he states is from "scratching". The shoulder joint itself does appear somewhat tender. He can range the shoulder although it appears to be limited secondary to pain. General lower extremity: Normal inspection, Nontender, Normal color, Normal ROM, Normal temperature, Normal weight bearing. No: Duc's sign - Neurological Neuro grossly intact: Yes Cognition: Normal Orientation: AAOx4 Vitaliy Coma Scale Eye Opening: Spontaneous [place] Coma Scale Verbal: Oriented Vitaliy Coma Scale Motor: Obeys Commands Vitaliy Coma Scale Total: 15 Speech: Normal Motor strength normal: LUE, RUE, LLE, RLE Sensory: Normal - Psychological Associated symptoms: Normal affect, Normal mood - Skin Skin Temperature: Warm Skin Moisture: Dry Skin Color: Normal Course - Re-evaluation Re-evalutation: 08/31/19 19:23 Patient presents with right arm swelling. He has some numbness in the forearm but this would appear to be due to compression of some peripheral nerve secondary to the swelling. He does have somewhat of an elevated white blood cell count and the arm is slightly erythematous and warm. It is possible he has an infection. Although an abscess or joint infection do not seem obvious. He possibly could have some cellulitis of this extremity but the swelling seems more diffuse and circumferential however it does seem prudent to treat him with antibiotics. Patient is also been tested for COVID due to his constitutional s ymptoms. 08/31/19 20:22 Patient's CPK is elevated consistent with rhabdo. I am suspicious that may be the patient fell and laid on his arm for an extended period. His shoulder area is tender and diffusely swollen possibly indicative of a joint effusion although he does not appear to have a significant 1 on x-ray. I attempted from multiple approach side to tap the shoulder joint using ultrasound but was unsuccessful in obtaining joint fluid. I did relay this to the hospitalist and at this time I have covered the patient with antibiotics. I think orthopedics will need to be consulted tomorrow and can proceed with arthrocentesis if still deemed necessary. A CT is currently pending of the right upper extremity. CTA of the head neck was also obtained to make sure that the numbness was not secondary to any type of cerebral vascular pathology. He has been bolused with fluids for his rhabdo. - Vital Signs Vital signs: Temp Pulse Resp BP Pulse Ox 97.5 F 93 16 149/97 H 98 08/31/19 10:35 08/31/19 10:35 08/31/19 10:35 08/31/19 10:35 08/31/19 10:35 - Laboratory Result Diagrams: 08/31/19 11:20 08/31/19 15:33 Laboratory results interpreted by me: 08/31/19 08/31/19 08/31/19 11:20 11:20 15:33 WBC 12.2 H RBC 6.26 H Hgb 19.9 H Hct 57.0 H RDW 15.0 H Lymph % (Auto) 12.7 L Absolute Neuts (auto) 9.6 H Seg Neutrophils % 78.3 H Sodium 133.8 L Potassium 5.3 H Glucose 200 H AST 663 H ALT 204 H Creatine Kinase 91619 H Total Protein 9.8 H - Diagnostic Test Radiology reviewed: Image reviewed, Reports reviewed - EKG Interpretation by Me EKG shows normal: Sinus rhythm Rate: Normal - 81 Rhythm: NSR Logan/QRS: No: Right axis deviation, Left axis deviation Discharge - Discharge Clinical Impression: Rhabdomyolysis Qualifiers: Rhabdomyolysis type: non-traumatic Qualified Code(s): M62.82 - Rhabdomyolysis Condition: Stable Disposition: ADMITTED INPATIENT Admitting Provider: Jerry (Hospitalist) Unit Admitted: [facility]
[2019-08-31] MEDS ORDERED: LIDOCAINE 1%/EPINEPHRINE INJ 20 ML VIAL ONE (19:32)
[2019-08-31 19:45] LABS: CREATINE KINASE 11354 U/L (55-170)
[2019-08-31] MEDS ORDERED: CEFTRIAXONE 1 GM/D5W RTU 1 GM/50 ML RTUPB IV ONE (20:10)
--- NOTE | 2019-08-31 21:12 | RADIOLOGY REPORT (SQ) ---
CT UPPER EXTREMITY WITHOUT IV CONTRAST HISTORY: Arm pain and swelling COMPARISON: None. TECHNIQUE: CT scan of the right upper extremity was performed without IV contrast. This exam was performed according to our departmental dose-optimization program, which includes automated exposure control, adjustment of the mA and/or kV according to patient size and/or use of iterative reconstruction technique. FINDINGS: No acute fracture or dislocation is seen. There is no cortical erosion or periosteal reaction to suggest acute osteomyelitis. No focal fluid collection or foreign body is identified. The muscles and tendons are intact. There is mild subcutaneous edema overlying the right arm greatest at the level of the elbow joint. IMPRESSION: Focal soft tissue swelling of the right upper extremity, but without evidence of osteomyelitis, fracture, or foreign body.
[2019-08-31] MEDS ORDERED: NICOTINE 21 MG/24 HR PATCH.TD24 TD PRN (21:27)
[2019-08-31] MEDS ORDERED: MORPHINE SULFATE 10 MG/ML INJ IV PRN ×2 (21:27→21:34)
[2019-08-31] MEDS ORDERED: MELATONIN 5 MG TABLET PO PRN (21:27)
[2019-08-31] MEDS ORDERED: HYDRALAZINE HCL INJ/PF 20 MG/1 ML SDV IV PRN (21:27)
[2019-08-31] MEDS ORDERED: MAGNESIUM HYDROXIDE SUSP 30 ML UDCUP PO PRN (21:27)
[2019-08-31] MEDS ORDERED: GUAIFENESIN SYRP 200 MG/10 ML UDC PO PRN (21:27)
[2019-08-31] MEDS ORDERED: ACETAMINOPHEN 325 MG TABLET PO PRN (21:27)
[2019-08-31] MEDS ORDERED: PROMETHAZINE HCL INJ 25 MG/1 ML VIAL IV PRN (21:27)
[2019-08-31] MEDS ORDERED: MAG HYDROX/AL HYDROX/SIMETH SUSP 30 ML UDCUP PO PRN (21:27)
[2019-08-31] MEDS ORDERED: LEVALBUTEROL HCL NEB 0.63 MG/3 ML AMPUL NEB PRN (21:27)
[2019-08-31] MEDS: FAMOTIDINE 20 MG TABLET PO SCH (22:44)
[2019-08-31] MEDS: DIAZEPAM 5 MG TABLET PO SCH (22:44)
--- NOTE | 2019-08-31 23:19 | PDOC H&P ---
History of Present Illness Admission Date/PCP: 08/31/2019 20:52 No local PCP Patient complains of: Right arm swelling and numbness History of Present Illness: BRITTANEY KENNY is a 54 year old male who presents the emergency room with a 4-day history of swelling in his right arm. He admits the sudden onset and constant presence of moderate swelling in his right upper arm accompanied by constant numbness and moderate achy discomfort throughout the right upper extremity. He admits the associated symptoms of an intermittent nonproductive cough, generalized malaise, nausea with vomiting and occasional diarrhea/loose stools for the last 4 days. He denies other associated or accompanying signs and symptoms. His right upper extremity is comfort is worsened by movement and improved with rest. He denies prior similar episodes. He has not identified any additional aggravating or ameliorating factors for his right upper extremity swelling. In the emergency room he was found to have an unremarkable evaluation with the exception of an elevated CPK and liver function tests. He was tested for COVID-19. He was subsequently admitted for further evaluation and treatment. Past Medical History Cardiac Medical History: Reports: Hypertension Denies: Atrial Fibrillation, Congestive Heart Failure, Coronary Artery Disease, Myocardial Infarction, Hyperlipidema, Peripheral Vascular Disease Pulmonary Medical History: Denies: Asthma, Chronic Obstructive Pulmonary Disease (COPD) EENT Medical History: Denies: Cataracts, Ears - Hearing aids Neurological Medical History: Denies: Hemorrhagic CVA, Ischemic CVA, Seizures Endocrine Medical History: Denies: Diabetes Mellitus Type 1, Diabetes Mellitus Type 2, Hyperthyroidism, Hypothyroidism, Obesity Renal/ Medical History: Denies: Chronic Kidney Disease, Nephrolithiasis Malignancy Medical History: Reports: None GI Medical History: Reports: 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, Hepatitis - Chronic due to hepatitis C Denies: Crohn's Disease, Gastroesophageal Reflux Disease, Peptic Ulcer Disease, Ulcerative Colitis Musculoskeltal Medical History: Denies: Arthritis, Gout Skin Medical History: Denies: Eczema, Psoriasis Psychiatric Medical History: Reports: Alcohol Dependency, Depression, General Anxiety Disorder, Tobacco Dependency Denies: Substance Abuse Traumatic Medical History: Reports: None Hematology: Denies: Anemia, Bleeding Tendencies Infectious Medical History: Reports: Hepatitis C Past Surgical History Past Surgical History: Reports: Orthopedic Surgery - left knee x2 Social History Information Source: Patient Lives with: Alone Smoking Status: Current Every Day Smoker Electronic Cigarette use?: No Frequency of Alcohol Use: Heavy - Drinks a 12 pack of beer daily Hx Recreational Drug Use: No Drugs: None Hx Prescription Drug Abuse: No - Advance Directive Resuscitation Status: Full Code Surrogate healthcare decision maker:: Sayra Carrillo Family History Family History: denies: CAD, DM, Hypertension, Malignancy Parental Family History Reviewed: Yes Children Family History Reviewed: No Sibling(s) Family History Reviewed.: Yes Medication/Allergy Home Medications: No Home Medications 07/04/19 Allergies/Adverse Reactions: No Known Allergies Allergy (Unverified 07/04/19 16:31) Review of Systems Constitutional: ABSENT: chills, fever(s) Eyes: ABSENT: visual disturbances, other - Eye pain Ears: ABSENT: hearing changes, other - Ear pain Nose, Mouth, and Throat: ABSENT: headache(s), sore throat Cardiovascular: ABSENT: chest pain, palpitations Respiratory: PRESENT: as per HPI, cough. ABSENT: dyspnea, hemoptysis, sputum Gastrointestinal: PRESENT: as per HPI, diarrhea, nausea, vomiting. ABSENT: abdominal pain, constipation Genitourinary: ABSENT: dysuria, hematuria Musculoskeletal: PRESENT: as per HPI, other - Right upper arm swelling. ABSENT: back pain, joint swelling Integumentary: ABSENT: pruritus, rash Neurological: ABSENT: confusion, convulsions, focal weakness, memory loss, syncope Psychiatric: ABSENT: anxiety, depression Endocrine: ABSENT: cold intolerance, heat intolerance, polydipsia, polyphagia, polyuria Hematologic/Lymphatic: ABSENT: easy bleeding, easy bruising Allergic/Immunologic: ABSENT: seasonal rhinorrhea Physical Exam Vital Signs: Temp Pulse Resp BP Pulse Ox 97.5 F 93 16 149/97 H 98 08/31/19 10:35 08/31/19 10:35 08/31/19 10:35 08/31/19 10:35 08/31/19 10:35 Intake & Output 08/29/19 08/30/19 08/31/19 23:59 23:59 23:59 Intake Total 1000 Balance 1000 Weight 77.111 kg General appearance: PRESENT: cooperative, mild distress - Secondary to right upper extremity discomfort Head exam: PRESENT: normocephalic, other - Small healing abrasions of the f [place] are noted Eye exam: PRESENT: conjunctiva pink. ABSENT: conjunctival injection, scleral icterus Ear exam: PRESENT: normal external ear exam. ABSENT: bleeding, drainage Mouth exam: PRESENT: dry mucosa, neck supple Neck exam: ABSENT: thyromegaly, tracheal deviation Respiratory exam: PRESENT: clear to auscultation baljit, symmetrical, unlabored Cardiovascular exam: PRESENT: RRR. ABSENT: clicks, gallop, rubs Pulses: PRESENT: normal radial pulses, normal dorsalis pedis pul Vascular exam: PRESENT: normal capillary refill. ABSENT: pallor GI/Abdominal exam: PRESENT: normal bowel sounds, soft Rectal exam: PRESENT: deferred Extremities exam: PRESENT: other - Right upper arm with mild to moderate edema and tenderness on ROM and deep palpation from the shoulder to the elbow. ABSENT: joint swelling, pedal edema Musculoskeletal exam: ABSENT: deformity, dislocation Neurological exam: PRESENT: alert, oriented to person, oriented to place, oriented to time, oriented to situation, CN II-XII grossly intact, motor sensory deficit - Decreased sensation in the right upper extremity on gross evaluation Psychiatric exam: PRESENT: appropriate affect, normal mood Skin exam: PRESENT: dry, intact, warm, other - Multiple tattoos noted. ABSENT: jaundice, rash, urticaria Results Laboratory Results: 08/31/19 11:20 08/31/19 15:33 08/31/19 08/31/19 08/31/19 11:20 11:20 15:33 WBC 12.2 H RBC 6.26 H Hgb 19.9 H Hct 57.0 H MCV 91 MCH 31.7 MCHC 34.8 RDW 15.0 H Plt Count 242 Seg Neutrophils % 78.3 H Sodium 138.2 133.8 L Potassium 5.3 H 4.4 Chloride 103 104 Carbon Dioxide 26 22 Anion Gap 9 8 BUN 19 17 Creatinine 0.88 0.74 Est GFR ( Amer) > 60 > 60 Glucose 200 H 109 Calcium 9.6 8.4 Total Bilirubin 1.2 AST 663 H Alkaline Phosphatase 122 Total Protein 9.8 H Albumin 4.7 08/31/19 08/31/19 11:20 15:33 Creatine Kinase 48814 H Troponin I < 0.012 Impressions: Chest X-Ray 08/31/19 11:46 IMPRESSION: No evidence of acute cardiopulmonary abnormality. Incidental finding of subacute mildly displaced transverse fractures of right ribs 9 and 10. Head CTA 08/31/19 11:46 IMPRESSION: NO CTA EVIDENCE OF STENOSIS OR ANEURYSM OF THE [place] OF LUCERO. Neck CTA 08/31/19 11:46 IMPRESSION: NORMAL CTA OF THE EXTRA-CRANIAL CAROTID AND VERTEBRAL ARTERIES. Venous Doppler Study 08/31/19 14:57 IMPRESSION: NO EVIDENCE DVT OR SVT IN THE RIGHT ARM. Shoulder X-Ray 08/31/19 14:58 IMPRESSION: Mild acromioclavicular arthropathy. No evidence of acute osseous injury. Assessment and Plan - Diagnosis (1) Rhabdomyolysis Qualifiers: Rhabdomyolysis type: non-traumatic Qualified Code(s): M62.82 - Rhabdomyolysis Is this a current diagnosis for this admission?: Yes (2) Hepatitis C Qualifiers: Viral hepatitis chronicity: chronic Hepatic coma status: without hepatic coma Qualified Code(s): B18.2 - Chronic viral hepatitis C Is this a current diagnosis for this admission?: Yes (3) Alcohol dependence Qualifiers: Substance use status: uncomplicated Qualified Code(s): F10.20 - Alcohol dependence, uncomplicated Is this a current diagnosis for this admission?: Yes (4) Tobacco use disorder, severe, dependence Is this a current diagnosis for this admission?: Yes (5) Nausea and vomiting Qualifiers: Vomiting type: unspecified Is this a current diagnosis for this admission?: Yes (6) Nonproductive cough Is this a current diagnosis for this admission?: Yes (7) Malaise Is this a current diagnosis for this admission?: Yes - Plan Summary Summary: Patient will be admitted to a medical bed where he will receive routine supportive and symptomatic cares. He will be treated with IV fluids using LR at 250 mL/h initially. Serial CPK levels will be obtained. Consultation with Dr. Jane will be obtained for orthopedic evaluation. He will receive morphine sulfate 2 to 4 mg IV every 2 hours as needed for pain. He will receive Valium 5 mg p.o. every 4 hours. He will also receive Valium 10 mg IV every hour as needed alcohol withdrawal symptoms. Serial CBCs, metabolic profiles, magnesium levels and other laboratory and/or radiographic evaluations will be obtained as appropriate. He will be on a cardiac diet. Smoking cessation is advised and counseled briefly at the bedside. A nicotine replacement patch is available for the patient's use, if desired. Empiric antibiotic therapy was initiated in the emergency room, however with no obvious infection further antibiotic therapy, if any, will be based upon Dr. Jane's recommendations. - Time Time Spent with patient: Less than 15 minutes Smoking Cessation Education: 3 to 10 minutes Medications reviewed and adjusted accordingly: Yes Anticipated discharge: Home - Inpatient Certification Based on my medical assessment, after consideration of the patient's comorbiditi es, presenting symptoms, or acuity I expect that the services needed warrant INPATIENT care.: Yes I certify that my determination is in accordance with my understanding of [facility]'s requirements for reasonable and necessary INPATIENT services [42 CFR 412.3e].: Yes Medical Necessity: Need Close Monitoring Due to Risk of Patient Decompensation, Need For IV Fluids, Risk of Complication if Not Cared For in Hospital
[2019-08-31] MEDS: RINGERS SOLUTION,LACTATED 1,000 ML IV PRN (23:58)
[2019-08-31] MEDS: HEPARIN SOD (PORCINE) 5,000 UNIT/ML 1 ML VIAL SUBCUT SCH (23:58)
[2019-09-01] MEDS: MORPHINE SULFATE 10 MG/ML INJ IV PRN ×5 (00:28→20:26)
[2019-09-01] MEDS: DIAZEPAM 5 MG TABLET PO SCH ×7 (01:06→21:14)
[2019-09-01] MEDS: RINGERS SOLUTION,LACTATED 1,000 ML IV PRN ×5 (04:44→21:33)
[2019-09-01] MEDS: HEPARIN SOD (PORCINE) 5,000 UNIT/ML 1 ML VIAL SUBCUT SCH ×3 (05:37→21:13)
[2019-09-01 06:42] LABS: HEMATOCRIT 42.3 % (37.9-51.0); MEAN CORPUSCULAR HEMOGLOBIN 31.9 pg (27.0-33.4); MEAN CORPUSCULAR HGB CONC 34.9 g/dL (32.0-36.0); MEAN CORPUSCULAR VOLUME 91 fl (80-97); PLATELET COUNT 127 10^3/uL (150-450); RED BLOOD COUNT 4.62 10^6/uL (4.35-5.55); RED CELL DISTRIBUTION WIDTH 14.5 % (11.5-14.0)
[2019-09-01 06:52] LABS: HEMOGLOBIN 14.8 g/dL (13.5-17.0)
[2019-09-01 06:58] LABS: BLOOD UREA NITROGEN 15 mg/dL (7-20); GLUCOSE 96 mg/dL (75-110)
[2019-09-01 07:03] LABS: CARBON DIOXIDE 25 mmol/L (22-30); CHLORIDE 105 mmol/L (98-107)
[2019-09-01 07:12] LABS: ANION GAP 4 (5-19)
[2019-09-01] MEDS: FAMOTIDINE 20 MG TABLET PO SCH ×2 (09:32→21:16)
[2019-09-01] MEDS: DOCUSATE SODIUM 100 MG CAPSULE PO SCH ×2 (09:33→17:06)
--- NOTE | 2019-09-01 14:37 | PDOC PROGRESS REPORT ---
Subjective Progress Note for:: 09/01/19 Subjective:: The patient points out that the proximal right forearm is still very swollen. It is still firm but he believes it may be slightly softer than yesterday. He also reports that although his urine is dark (tea colored) it is better than yesterday. He is still having discomfort in his right arm and shoulder. Reason For Visit: ACUTE RHABDOMYOLYSIS,CHRONIC HEPATITIS C Physical Exam Vital Signs: Temp Pulse Resp BP Pulse Ox 98.3 F 63 17 136/80 H 97 09/01/19 11:15 09/01/19 11:15 09/01/19 11:15 09/01/19 11:15 09/01/19 11:15 Intake & Output 08/31/19 09/01/19 09/02/19 06:59 06:59 06:59 Intake Total 3050 2496 Output Total 1 Balance 3049 2496 Weight 77.11 kg General appearance: PRESENT: cooperative, mild distress, well-developed Head exam: PRESENT: atraumatic, normocephalic Respiratory exam: PRESENT: symmetrical, unlabored. ABSENT: prolonged expiratory phas, tachypnea Rectal exam: PRESENT: deferred Gentrourinary exam: ABSENT: indwelling catheter Extremities exam: PRESENT: other - The proximal right forearm is still quite swollen. It is tender to the touch. It is firm but not tense. The biceps is less swollen but still firm. It is thaw shed heater tender. It is difficult to assess color as the patient has a sleeve of tattoos on that arm. Musculoskeletal exam: PRESENT: ambulatory, normal inspection Neurological exam: PRESENT: alert, awake, oriented to person, oriented to place, oriented to time, oriented to situation, CN II-XII grossly intact. ABSENT: altered, motor sensory deficit Psychiatric exam: PRESENT: appropriate affect. ABSENT: agitated, anxious Focused psych exam: ABSENT: delusional, paranoid, restlessness Skin exam: PRESENT: other - Multiple tattoos Results Laboratory Results: 09/01/19 06:10 09/01/19 06:10 08/31/19 09/01/19 09/01/19 15:33 06:10 06:10 WBC 6.0 RBC 4.62 Hgb 14.8 D Hct 42.3 MCV 91 MCH 31.9 MCHC 34.9 RDW 14.5 H Plt Count 127 L Sodium 133.8 L 133.8 L Potassium 4.4 4.0 Chloride 104 105 Carbon Dioxide 22 25 Anion Gap 8 4 L BUN 17 15 Creatinine 0.74 0.67 Est GFR ( Amer) > 60 > 60 Glucose 109 96 Calcium 8.4 8.0 L Magnesium 2.0 TSH 09/01/19 06:10 WBC RBC Hgb Hct MCV MCH MCHC RDW Plt Count Sodium Potassium Chloride Carbon Dioxide Anion Gap BUN Creatinine Est GFR ( Amer) Glucose Calcium Magnesium TSH 4.83 H 08/31/19 08/31/19 08/31/19 11:20 15:33 22:09 Creatine Kinase 69794 H 8603 H CK-MB (CK-2) Troponin I < 0.012 09/01/19 06:10 Creatine Kinase CK-MB (CK-2) 59.20 H Troponin I Impressions: Chest X-Ray 08/31/19 11:46 IMPRESSION: No evidence of acute cardiopulmonary abnormality. Incidental finding of subacute mildly displaced transverse fractures of right ribs 9 and 10. Head CTA 08/31/19 11:46 IMPRESSION: NO CTA EVIDENCE OF STENOSIS OR ANEURYSM OF THE [place]. Neck CTA 08/31/19 11:46 IMPRESSION: NORMAL CTA OF THE EXTRA-CRANIAL CAROTID AND VERTEBRAL ARTERIES. Venous Doppler Study 08/31/19 14:57 IMPRESSION: NO EVIDENCE DVT OR SVT IN THE RIGHT ARM. Shoulder X-Ray 08/31/19 14:58 IMPRESSION: Mild acromioclavicular arthropathy. No evidence of acute osseous injury. Upper Extremity CT 08/31/19 20:09 IMPRESSION: Focal soft tissue swelling of the right upper extremity, but without evidence of osteomyelitis, fracture, or foreign body. Assessment and Plan - Diagnosis (1) Rhabdomyolysis Qualifiers: Rhabdomyolysis type: non-traumatic Qualified Code(s): M62.82 - Rhabdomyolysis Is this a current diagnosis for this admission?: Yes Plan: 09/01/2019 The patient was wondering why this happened to his arm. 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 He also admits that he was likely dehydrated. Fortunately with aggressive IV fluids his creatinine kinase is down to 8600 from over 11,000. As noted above his urine is still tea colored. We will continue with aggressive IV fluids and repeat his creatinine kinase levels tomorrow. (2) Hepatitis C Qualifiers: Viral hepatitis chronicity: chronic Hepatic coma status: without hepatic coma Qualified Code(s): B18.2 - Chronic viral hepatitis C Is this a current diagnosis for this admission?: Yes Plan: 09/01/2019 The patient has significant transaminase elevation. AST is 663 and his ALT is 204. There is also alcohol dependence and so it is hard to know how much is hepatitis A and how much is alcoholic hepatitis. Continue conservative management. Monitor transaminases. (3) Alcohol dependence Qualifiers: Substance use status: uncomplicated Qualified Code(s): F10.20 - Alcohol dependence, uncomplicated Is this a current diagnosis for this admission?: Yes Plan: 09/01/2019 Monitor for signs of withdrawal. He is on scheduled and as needed Valium. (4) Nausea and vomiting Qualifiers: Vomiting type: unspecified Is this a current diagnosis for this admission?: Yes Plan: 09/01/2019 Patient reports no more nausea or vomiting at this point. (5) Nonproductive cough Is this a current diagnosis for this admission?: Yes Plan: 09/01/2019 Conservative approach. Could be related to smoking. (6) Malaise Is this a current diagnosis for this admission?: Yes Plan: 09/01/2019 Not surprising considering the multiple comorbidities. This should improve with resolution of his rhabdomyolysis (7) Tobacco use disorder, severe, dependence Is this a current diagnosis for this admission?: Yes Plan: 09/01/2019 Continue nicotine patch - Plan Summary Summary: Patient will be admitted to a medical bed where he will receive routine suppo rtive and symptomatic cares. He will be treated with IV fluids using LR at 250 mL/h initially. Serial CPK levels will be obtained. Consultation with Dr. Jane will be obtained for orthopedic evaluation. He will receive morphine sulfate 2 to 4 mg IV every 2 hours as needed for pain. He will receive Valium 5 mg p.o. every 4 hours. He will also receive Valium 10 mg IV every hour as needed alcohol withdrawal symptoms. Serial CBCs, metabolic profiles, magnesium levels and other laboratory and/or radiographic evaluations will be obtained as appropriate. He will be on a cardiac diet. Smoking cessation is advised and counseled briefly at the bedside. A nicotine replacement patch is available for the patient's use, if desired. Empiric antibiotic therapy was initiated in the emergency room, however with no obvious infection further antibiotic therapy, if any, will be based upon Dr. Jane's recommendations. - Time Time Spent with patient: 15-24 minutes Smoking Cessation Education: 3 to 10 minutes Medications reviewed and adjusted accordingly: Yes Anticipated discharge: Home
[2019-09-01] MEDS ORDERED: PROMETHAZINE HCL INJ 25 MG/1 ML VIAL IV PRN (15:00)
[2019-09-01] MEDS ORDERED: (PENDING PHARMACY ID) (Gabapentin [Gabapentin] 800 MG) PO SCH (18:00)
[2019-09-01] MEDS: GABAPENTIN 400 MG CAPSULE PO SCH (21:14)
[2019-09-01 22:23] LABS: APPEARANCE,URINE CLEAR; BILIRUBIN,URINE NEGATIVE (NEGATIVE); COLOR,URINE YELLOW; GLUCOSE, URINE NEGATIVE (NEGATIVE); KETONES,URINE NEGATIVE (NEGATIVE); PROTEIN,URINE NEGATIVE (NEGATIVE); URINE SPECIFIC GRAVITY 1.012; UROBILINOGEN,URINE NEGATIVE mg/dL (<2.0)
[2019-09-02] MEDS: DIAZEPAM 5 MG TABLET PO SCH ×6 (01:14→22:07)
[2019-09-02] MEDS: MORPHINE SULFATE 10 MG/ML INJ IV PRN ×4 (01:14→15:06)
[2019-09-02] MEDS: GABAPENTIN 400 MG CAPSULE PO SCH ×3 (05:43→22:07)
[2019-09-02 06:18] LABS: HEMATOCRIT 41.7 % (37.9-51.0); HEMOGLOBIN 14.7 g/dL (13.5-17.0); MEAN CORPUSCULAR HEMOGLOBIN 31.9 pg (27.0-33.4); MEAN CORPUSCULAR HGB CONC 35.3 g/dL (32.0-36.0); MEAN CORPUSCULAR VOLUME 90 fl (80-97); PLATELET COUNT 134 10^3/uL (150-450); RED BLOOD COUNT 4.62 10^6/uL (4.35-5.55); RED CELL DISTRIBUTION WIDTH 14.5 % (11.5-14.0); WHITE BLOOD COUNT 5.7 10^3/uL (4.0-10.5)
[2019-09-02 06:38] LABS: BLOOD UREA NITROGEN 10 mg/dL (7-20); CALCIUM 8.7 mg/dL (8.4-10.2); CHLORIDE 102 mmol/L (98-107); GLUCOSE 87 mg/dL (75-110); POTASSIUM 4.2 mmol/L (3.6-5.0)
[2019-09-02 06:43] LABS: CARBON DIOXIDE 28 mmol/L (22-30)
[2019-09-02 06:45] LABS: ANION GAP 4 (5-19)
[2019-09-02] MEDS: LOSARTAN POTASSIUM 25 MG TABLET PO SCH (09:50)
[2019-09-02] MEDS: DOCUSATE SODIUM 100 MG CAPSULE PO SCH ×3 (09:50→19:03)
[2019-09-02] MEDS: FAMOTIDINE 20 MG TABLET PO SCH ×2 (09:50→22:07)
[2019-09-02] MEDS: HEPARIN SOD (PORCINE) 5,000 UNIT/ML 1 ML VIAL SUBCUT SCH ×2 (15:07→21:49)
[2019-09-02] MEDS ORDERED: HYDROMORPHONE HCL INJ/PF 2 MG/ML AMPULE IV PRN (17:17)
--- NOTE | 2019-09-02 17:27 | PDOC PROGRESS REPORT ---
Subjective Progress Note for:: 09/02/19 Subjective:: The patient's right arm seems to be more swollen today. It is more noticeable in the upper arm. The patient reports that it hurts more. There is some skin breakdown noted on the upper arm by way of small areas that look like ruptured vesicles. Reason For Visit: ACUTE RHABDOMYOLYSIS,CHRONIC HEPATITIS C Physical Exam Vital Signs: Temp Pulse Resp BP Pulse Ox 98.6 F 57 L 16 131/83 H 96 09/02/19 16:25 09/02/19 16:25 09/02/19 16:25 09/02/19 16:25 09/02/19 16:25 Intake & Output 09/01/19 09/02/19 09/03/19 06:59 06:59 06:59 Intake Total 3050 6547 Output Total 1 150 Balance 3049 6397 Weight 77.11 kg 77.28 kg 77.28 kg General appearance: PRESENT: cooperative, well-developed, other - Patient in obvious distress. Head exam: PRESENT: atraumatic, normocephalic Respiratory exam: PRESENT: other - Lateral auscultation due to potential positive COVID Cardiovascular exam: PRESENT: other - No auscultation due to potential positive COVID Pulses: PRESENT: other - Radial pulse right arm is palpable and normal Extremities exam: PRESENT: other - Right upper extremity is still notable for forearm swelling but now the upper arm is swollen and tense as well. There are some scabs from vesicles on the shoulder and upper arm as well but they do not seem to be in a dermatomal pattern. Neurological exam: PRESENT: alert, awake, oriented to person, oriented to place, oriented to time, oriented to situation, CN II-XII grossly intact Psychiatric exam: PRESENT: anxious, appropriate affect - Affect reflects the increased discomfort. ABSENT: agitated Skin exam: PRESENT: vesicles - Possible ruptured vesicles right upper arm Results Laboratory Results: 09/02/19 06:02 09/02/19 06:02 09/01/19 09/02/19 09/02/19 21:44 06:02 06:02 WBC 5.7 RBC 4.62 Hgb 14.7 Hct 41.7 MCV 90 MCH 31.9 MCHC 35.3 RDW 14.5 H Plt Count 134 L Sodium 134.2 L Potassium 4.2 Chloride 102 Carbon Dioxide 28 Anion Gap 4 L BUN 10 Creatinine 0.72 Est GFR ( Amer) > 60 Glucose 87 Calcium 8.7 Magnesium 1.9 Urine Color YELLOW Urine Appearance CLEAR Urine pH 6.0 Ur Specific [place] 1.012 Urine Protein NEGATIVE Urine Glucose (UA) NEGATIVE Urine Ketones NEGATIVE Urine Blood NEGATIVE 08/31/19 21:04 Blood Blood Culture (PCR) - Final Staphylococcus Species 08/31/19 08/31/19 08/31/19 11:20 15:33 22:09 Creatine Kinase 50583 H 8603 H CK-MB (CK-2) Troponin I < 0.012 09/01/19 09/01/19 09/02/19 06:10 19:00 06:02 Creatine Kinase CK-MB (CK-2) 59.20 H 29.30 H 22.00 H Troponin I 09/02/19 15:38 Creatine Kinase 5178 H CK-MB (CK-2) Troponin I Impressions: Chest X-Ray 08/31/19 11:46 IMPRESSION: No evidence of acute cardiopulmonary abnormality. Incidental finding of subacute mildly displaced transverse fractures of right ribs 9 and 10. Head CTA 08/31/19 11:46 IMPRESSION: NO CTA EVIDENCE OF STENOSIS OR ANEURYSM OF THE [place] OF [place]. Neck CTA 08/31/19 11:46 IMPRESSION: NORMAL CTA OF THE EXTRA-CRANIAL CAROTID AND VERTEBRAL ARTERIES. Venous Doppler Study 08/31/19 14:57 IMPRESSION: NO EVIDENCE DVT OR SVT IN THE RIGHT ARM. Shoulder X-Ray 08/31/19 14:58 IMPRESSION: Mild acromioclavicular arthropathy. No evidence of acute osseous injury. Upper Extremity CT 08/31/19 20:09 IMPRESSION: Focal soft tissue swelling of the right upper extremity, but without evidence of osteomyelitis, fracture, or foreign body. Assessment and Plan - Diagnosis (1) Rhabdomyolysis Qualifiers: Rhabdomyolysis type: non-traumatic Qualified Code(s): M62.82 - Rhabdomyolysis Is this a current diagnosis for this admission?: Yes Plan: 09/01/2019 The patient was wondering why this happened to his arm. 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 He also admits that he was likely dehydrated. Fortunately with aggressive IV fluids his creatinine kinase is down to 8600 from over 11,000. As noted above his urine is still tea colored. We will continue with aggressive IV fluids and repeat his creatinine kinase levels tomorrow. 09/02/2019 Creatinine kinase continues to come down. It has dropped below 6000. Unfortunately the arm is slightly more swollen and tender. Unfortunately the IV fluids had a fixed volume and so I have restarted IV fluids and this will undoubtedly help. Pain medications have been changed. I have also ordered warm compresses. Because of the increased swelling I have ordered another CT scan of the right arm to rule out any new pathology. (2) Hepatitis C Qualifiers: Viral hepatitis chronicity: chronic Hepatic coma status: without hepatic coma Qualified Code(s): B18.2 - Chronic viral hepatitis C Is this a current diagnosis for this admission?: Yes Plan: 09/01/2019 The patient has significant transaminase elevation. AST is 663 and his ALT is 204. There is also alcohol dependence and so it is hard to know how much is hepatitis A and how much is alcoholic hepatitis. Continue conservative management. Monitor transaminases. 09/02/2019 We will repeat liver function panel tomorrow. We will also check INR. If the patient has auto anticoagulation from liver disease he could be having bleeding in the right arm. Will monitor closely. (3) Alcohol dependence Qualifiers: Substance use status: uncomplicated Qualified Code(s): F10.20 - Alcohol dependence, uncomplicated Is this a current diagnosis for this admission?: Yes Plan: 09/01/2019 Monitor for signs of withdrawal. He is on scheduled and as needed Valium. 09/02/2019 Continue to monitor. No evidence of withdrawal at this time. (4) Nausea and vomiting Qualifiers: Vomiting type: unspecified Is this a current diagnosis for this admission?: Yes Plan: 09/01/2019 Patient reports no more nausea or vomiting at this point. 09/02/2019 No further nausea or vomiting. Medications available as needed. (5) Nonproductive cough Is this a current diagnosis for this admission?: Yes Plan: 09/01/2019 Conservative approach. Could be related to smoking. 09/02/2019 Appears to have improved. I do not expect it to resolve completely. (6) Malaise Is this a current diagnosis for this admission?: Yes Plan: 09/01/2019 Not surprising considering the multiple comorbidities. This should improve with resolution of his rhabdomyolysis 09/02/2019 Patient is more animated today. This is from the increase in pain. We will continue supportive care. (7) Tobacco use disorder, severe, dependence Is this a current diagnosis for this admission?: Yes Plan: 09/01/2019 Continue nicotine patch - Plan Summary Summary: Patient will be admitted to a medical bed where he will receive routine supportive and symptomatic cares. He will be treated with IV fluids using LR at 250 mL/h initially. Serial CPK levels will be obtained. Consultation with Dr. Jane will be obtained for orthopedic evaluation. He will receive morphine sulfate 2 to 4 mg IV every 2 hours as needed for pain. He will receive Valium 5 mg p.o. every 4 hours. He will also receive Valium 10 mg IV every hour as needed alcohol withdrawal symptoms. Serial CBCs, metabolic profiles, magnesium levels and other laboratory and/or radiographic evaluations will be obtained as appropriate. He will be on a cardiac diet. Smoking cessation is advised and counseled briefly at the bedside. A nicotine replacement patch is available for the patient's use, if desired. Empiric antibiotic therapy was initiated in the emergency room, however with no obvious infection further antibiotic therapy, if any, will be based upon Dr. Jane's recommendations. - Time Time Spent with patient: 15-24 minutes Medications reviewed and adjusted accordingly: Yes
[2019-09-02] MEDS: HYDROMORPHONE HCL INJ/PF 2 MG/ML AMPULE IV PRN ×2 (17:46→22:46)
[2019-09-02] MEDS ORDERED: METHYLPREDNISOLONE INJ 40 MG/1 ML SDV IV ONE (18:00)
[2019-09-02] MEDS ORDERED: NORMAL SALINE 1000 ML 1,000 ML IV PRN (18:35)
[2019-09-03] MEDS: DIAZEPAM 5 MG TABLET PO SCH ×2 (01:46→06:35)
[2019-09-03] MEDS: DIAZEPAM INJ 10 MG/2 ML DISP.SYRIN IV PRN ×2 (03:17→06:37)
[2019-09-03] MEDS: CHLORPROMAZINE HCL INJ 25 MG/1 ML AMPULE IV PRN (03:56)
[2019-09-03] MEDS: HEPARIN SOD (PORCINE) 5,000 UNIT/ML 1 ML VIAL SUBCUT SCH ×3 (05:30→21:34)
[2019-09-03 06:21] LABS: HEMATOCRIT 39.3 % (37.9-51.0); HEMOGLOBIN 13.7 g/dL (13.5-17.0); MEAN CORPUSCULAR HEMOGLOBIN 32.2 pg (27.0-33.4); MEAN CORPUSCULAR HGB CONC 34.8 g/dL (32.0-36.0); MEAN CORPUSCULAR VOLUME 92 fl (80-97); PLATELET COUNT 130 10^3/uL (150-450); RED BLOOD COUNT 4.25 10^6/uL (4.35-5.55); RED CELL DISTRIBUTION WIDTH 14.1 % (11.5-14.0); WHITE BLOOD COUNT 4.9 10^3/uL (4.0-10.5)
[2019-09-03 06:27] LABS: INTERNATIONAL RATION (INR) 0.87; PROTHROMBIN TIME 11.8 SEC (11.4-15.4)
[2019-09-03] MEDS: GABAPENTIN 400 MG CAPSULE PO SCH ×3 (06:35→21:33)
[2019-09-03 06:40] LABS: ALBUMIN 3.6 g/dL (3.5-5.0); ALKALINE PHOSPHATASE 71 U/L (38-126); ASPARTATE AMINO TRANSFERASE 392 U/L (17-59); BILIRUBIN,DIRECT 0.1 mg/dL (0.0-0.4); BILIRUBIN,TOTAL 1.5 mg/dL (0.2-1.3); BLOOD UREA NITROGEN 10 mg/dL (7-20); CARBON DIOXIDE 28 mmol/L (22-30); GLUCOSE 166 mg/dL (75-110); POTASSIUM 4.8 mmol/L (3.6-5.0); TOTAL PROTEIN 7.1 g/dL (6.3-8.2)
[2019-09-03 06:50] LABS: ANION GAP 5 (5-19); CHLORIDE 104 mmol/L (98-107)
[2019-09-03 06:56] LABS: CREATINE KINASE 5410 U/L (55-170)
[2019-09-03 07:02] LABS: ERYTHROCYTE SEDIMENTATION RATE 37 mm/hr (0-20)
[2019-09-03] MEDS ORDERED: DIAZEPAM 5 MG TABLET PO PRN (09:42)
[2019-09-03] MEDS ORDERED: DIAZEPAM INJ 10 MG/2 ML DISP.SYRIN IV PRN (09:43)
[2019-09-03] MEDS: DOCUSATE SODIUM 100 MG CAPSULE PO SCH ×2 (09:48→17:03)
--- NOTE | 2019-09-03 09:54 | PDOC PROGRESS REPORT ---
Subjective Progress Note for:: 09/03/19 Subjective:: The patient tested COVID negative The patient is quite sleepy. He has been getting scheduled Valium every 4 hours. I will change this to as needed. His right arm is definitely softer after the dose of Solu-Medrol yesterday. Reason For Visit: ACUTE RHABDOMYOLYSIS,CHRONIC HEPATITIS C Physical Exam Vital Signs: Temp Pulse Resp BP Pulse Ox 97.6 F 51 L 17 141/84 H 100 09/03/19 08:33 09/03/19 08:33 09/03/19 08:33 09/03/19 08:33 09/03/19 08:33 Intake & Output 09/02/19 09/03/19 09/04/19 06:59 06:59 06:59 Intake Total 6547 Output Total 150 Balance 6397 Weight 77.28 kg 74.3 kg General appearance: PRESENT: no acute distress, cooperative - Sluggish Head exam: PRESENT: atraumatic, normocephalic Ear exam: PRESENT: TM's normal bilaterally. ABSENT: bleeding, drainage Respiratory exam: PRESENT: symmetrical, unlabored. ABSENT: rales, rhonchi, tachypnea, wheezes Cardiovascular exam: PRESENT: RRR, +S1, +S2. ABSENT: diastolic murmur, irregular rhythm, systolic murmur GI/Abdominal exam: PRESENT: normal bowel sounds, soft. ABSENT: distended, guarding, tenderness Rectal exam: PRESENT: deferred Gentrourinary exam: ABSENT: indwelling catheter Extremities exam: PRESENT: other - Right upper arm seems less swollen today. It is definitely softer than yesterday and not as tender. The right proximal for earm is still swollen but softer than yesterday as well. Again not as tender.. ABSENT: pedal edema Musculoskeletal exam: PRESENT: ambulatory, normal inspection. ABSENT: deformity Neurological exam: PRESENT: awake, oriented to person, oriented to place, oriented to time, oriented to situation, CN II-XII grossly intact. ABSENT: alert - Groggy this morning, altered, motor sensory deficit Psychiatric exam: PRESENT: appropriate affect. ABSENT: agitated, anxious Focused psych exam: ABSENT: delusional, paranoid, restlessness Skin exam: PRESENT: other - Excoriations on his forehead. No new vesicles or scabbed lesions suggesting previous vesicles on the right upper arm. Results Laboratory Results: 09/03/19 05:50 09/03/19 05:50 09/03/19 09/03/19 05:50 05:50 WBC 4.9 RBC 4.25 L Hgb 13.7 Hct 39.3 MCV 92 MCH 32.2 MCHC 34.8 RDW 14.1 H Plt Count 130 L Sodium 137.1 Potassium 4.8 Chloride 104 Carbon Dioxide 28 Anion Gap 5 BUN 10 Creatinine 0.49 L Est GFR ( Amer) > 60 Glucose 166 H Calcium 9.0 Magnesium 2.2 Total Bilirubin 1.5 H AST 392 H Alkaline Phosphatase 71 Total Protein 7.1 Albumin 3.6 08/31/19 21:04 Blood Blood Culture (PCR) - Final Staphylococcus Species 08/31/19 08/31/19 08/31/19 11:20 15:33 22:09 Creatine Kinase 97561 H 8603 H CK-MB (CK-2) Troponin I < 0.012 09/01/19 09/01/19 09/02/19 06:10 19:00 06:02 Creatine Kinase CK-MB (CK-2) 59.20 H 29.30 H 22.00 H Troponin I 09/02/19 09/03/19 15:38 05:50 Creatine Kinase 5178 H 5410 H CK-MB (CK-2) Troponin I Impressions: Chest X-Ray 08/31/19 11:46 IMPRESSION: No evidence of acute cardiopulmonary abnormality. Incidental finding of subacute mildly displaced transverse fractures of right ribs 9 and 10. Head CTA 08/31/19 11:46 IMPRESSION: NO CTA EVIDENCE OF STENOSIS OR ANEURYSM OF THE [place]. Neck CTA 08/31/19 11:46 IMPRESSION: NORMAL CTA OF THE EXTRA-CRANIAL CAROTID AND VERTEBRAL ARTERIES. Venous Doppler Study 08/31/19 14:57 IMPRESSION: NO EVIDENCE DVT OR SVT IN THE RIGHT ARM. Shoulder X-Ray 08/31/19 14:58 IMPRESSION: Mild acromioclavicular arthropathy. No evidence of acute osseous injury. Upper Extremity CT 08/31/19 20:09 IMPRESSION: Focal soft tissue swelling of the right upper extremity, but without evidence of osteomyelitis, fracture, or foreign body. Assessment and Plan - Diagnosis (1) Rhabdomyolysis Qualifiers: Rhabdomyolysis type: non-traumatic Qualified Code(s): M62.82 - Rhabdomyolysis Is this a current diagnosis for this admission?: Yes Plan: 09/01/2019 The patient was wondering why this happened to his arm. 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 He also admits that he was likely dehydrated. Fortunately with aggressive IV fluids his creatinine kinase is down to 8600 from over 11,000. As noted above his urine is still tea colored. We will continue with aggressive IV fluids and repeat his creatinine kinase levels tomorrow. 09/02/2019 Creatinine kinase continues to come down. It has dropped below 6000. Unfortunately the arm is slightly more swollen and tender. Unfortunately the IV fluids had a fixed volume and so I have restarted IV fluids and this will undoubtedly help. Pain medications have been changed. I have also ordered warm compresses. Because of the increased swelling I have ordered another CT scan of the right arm to rule out any new pathology. 09/03/2019 Creatinine kinase total is 5400. This is slightly increased from yesterday. I believe it has to do with the gap in IV fluids. Clinically the arm is better. I do not feel we need a CT scan at this point. We will continue aggressive IV fluids and I will start daily Solu-Medrol dosing. (2) Hepatitis C Qualifiers: Viral hepatitis chronicity: chronic Hepatic coma status: without hepatic coma Qualified Code(s): B18.2 - Chronic viral hepatitis C Is this a current diagnosis for this admission?: Yes Plan: 09/01/2019 The patient has significant transaminase elevation. AST is 663 and his ALT is 204. There is also alcohol dependence and so it is hard to know how much is hepatitis A and how much is alcoholic hepatitis. Continue conservative manageme nt. Monitor transaminases. 09/02/2019 We will repeat liver function panel tomorrow. We will also check INR. If the patient has auto anticoagulation from liver disease he could be having bleeding in the right arm. Will monitor closely. 09/03/2019 Transaminases are much improved. AST was 663 on admission and is now 392. ALT was 204 on admission and is now 136. Total bilirubin did increase slightly from 1.2-1.5. Continue to monitor. Try to avoid hepatotoxic medications and adjust medications metabolized through the liver. (3) Alcohol dependence Qualifiers: Substance use status: uncomplicated Qualified Code(s): F10.20 - Alcohol dependence, uncomplicated Is this a current diagnosis for this admission?: Yes Plan: 09/01/2019 Monitor for signs of withdrawal. He is on scheduled and as needed Valium. 09/02/2019 Continue to monitor. No evidence of withdrawal at this time. 09/03/2019 The scheduled Valium is catching up with the patient and he is quite groggy. I will change the Valium to as needed with an oral dose offered primarily and if unable then an IV dose will be available. (4) Nausea and vomiting Qualifiers: Vomiting type: unspecified Is this a current diagnosis for this admission?: Yes Plan: 09/01/2019 Patient reports no more nausea or vomiting at this point. 09/02/2019 No further nausea or vomiting. Medications available as needed. 09/03/2019 Resolved (5) Nonproductive cough Is this a current diagnosis for this admission?: Yes Plan: 09/01/2019 Conservative approach. Could be related to smoking. 09/02/2019 Appears to have improved. I do not expect it to resolve completely. 09/03/2019 Note acute change (6) Malaise Is this a current diagnosis for this admission?: Yes Plan: 09/01/2019 Not surprising considering the multiple comorbidities. This should improve with resolution of his rhabdomyolysis 09/02/2019 Patient is more animated today. This is from the increase in pain. We will continue supportive care. 09/03/2019 Today I believe he is lethargic from medications. We will decrease the Valium as outlined above. (7) Tobacco use disorder, severe, dependence Is this a current diagnosis for this admission?: Yes Plan: 09/01/2019 Continue nicotine patch 09/03/2019 Nicotine patch - Plan Summary Summary: Patient will be admitted to a medical bed where he will receive routine supportive and symptomatic cares. He will be treated with IV fluids using LR at 250 mL/h initially. Serial CPK levels will be obtained. Consultation with Dr. Jane will be obtained for orthopedic evaluation. He will receive morphine sulfate 2 to 4 mg IV every 2 hours as needed for pain. He will receive Valium 5 mg p.o. every 4 hours. He will also receive Valium 10 mg IV every hour as needed alcohol withdrawal symptoms. Serial CBCs, metabolic profiles, magnesium levels and other laboratory and/or radiographic evaluations will be obtained as appropriate. He will be on a cardiac diet. Smoking cessation is advised and counseled briefly at the bedside. A nicotine replacement patch is available for the patient's use, if desired. Empiric antibiotic therapy was initiated in the emergency room, however with no obvious infection further antibiotic therapy, if any, will be based upon Dr. Jane's recommendations. - Time Time Spent with patient: Less than 15 minutes Medications reviewed and adjusted accordingly: Yes Anticipated discharge: Home
[2019-09-03] MEDS: FAMOTIDINE 20 MG TABLET PO SCH ×2 (10:05→21:33)
[2019-09-03] MEDS: METHYLPREDNISOLONE INJ 40 MG/1 ML SDV IV SCH (10:05)
[2019-09-03] MEDS: LOSARTAN POTASSIUM 25 MG TABLET PO SCH (10:05)
[2019-09-03] MEDS: NORMAL SALINE 1000 ML 1,000 ML IV PRN ×2 (18:24→23:44)
[2019-09-03] MEDS: HYDROMORPHONE HCL INJ/PF 2 MG/ML AMPULE IV PRN ×2 (19:51→23:40)
[2019-09-04] MEDS ORDERED: CHLORPROMAZINE HCL INJ 25 MG/1 ML AMPULE ONE (01:16)
[2019-09-04] MEDS: CHLORPROMAZINE HCL INJ 25 MG/1 ML AMPULE IV PRN (01:24)
[2019-09-04] MEDS: HEPARIN SOD (PORCINE) 5,000 UNIT/ML 1 ML VIAL SUBCUT SCH ×2 (05:49→08:33)
[2019-09-04] MEDS: HYDROMORPHONE HCL INJ/PF 2 MG/ML AMPULE IV PRN (08:11)
[2019-09-04] MEDS: NORMAL SALINE 1000 ML 1,000 ML IV PRN (08:11)
[2019-09-04] MEDS: GABAPENTIN 400 MG CAPSULE PO SCH (08:11)
[2019-09-04 08:29] VITALS: BP 144/86
--- NOTE | 2019-09-04 09:18 | PDOC DISCHARGE SUMMARY ---
Impression - Admit/DC Date/PCP Admission Date/Primary Care Provider: 08/31/19 21:02 Discharge Date: 09/04/19 - Discharge Diagnosis (1) Rhabdomyolysis Is this a current diagnosis for this admission?: Yes (2) Hepatitis C Is this a current diagnosis for this admission?: Yes (3) Alcohol dependence Is this a current diagnosis for this admission?: Yes (4) Nausea and vomiting Is this a current diagnosis for this admission?: Yes (5) Nonproductive cough Is this a current diagnosis for this admission?: Yes (6) Malaise Is this a current diagnosis for this admission?: Yes (7) Tobacco use disorder, severe, dependence Is this a current diagnosis for this admission?: Yes - Assessment Summary: Patient will be admitted to a medical bed where he will receive routine supportive and symptomatic cares. He will be treated with IV fluids using LR at 250 mL/h initially. Serial CPK levels will be obtained. Consultation with Dr. Jane will be obtained for orthopedic evaluation. He will receive morphine sulfate 2 to 4 mg IV every 2 hours as needed for pain. He will receive Valium 5 mg p.o. every 4 hours. He will also receive Valium 10 mg IV every hour as needed alcohol withdrawal symptoms. Serial CBCs, metabolic profiles, magnesium levels and other laboratory and/or radiographic evaluations will be obtained as appropriate. He will be on a cardiac diet. Smoking cessation is advised and counseled briefly at the bedside. A nicotine replacement patch is available for the patient's use, if desired. Empiric antibiotic therapy was initiated in the emergency room, however with no obvious infection further antibiotic therapy, if any, will be based upon Dr. Jane's recommendations. - Additional Information Resuscitation Status: Full Code Discharge Diet: Regular Discharge Activity: Other - Rest the right arm until Thursday September 12, 2019 Ref[facility]: [facility] [NO LOCAL MD] - (Follow-up Thursday or Will need repeat creatinine kinase level) Prescriptions: Prednisone [Deltasone 20 mg Tablet] 20 mg PO DAILY 3 Days #3 tablet Home Medications: Gabapentin 800 mg PO TID 09/01/19 Losartan Potassium [Cozaar 25 mg Tablet] 25 mg PO DAILY 09/01/19 Melatonin [Melatonin 5 mg Tablet] 10 mg PO HSP PRN tablet 09/04/19 Nicotine [Nicoderm 21 mg/24 Hr Transderm Patch] 1 each TD DAILYP PRN patch.td24 09/04/19 Prednisone [Deltasone 20 mg Tablet] 20 mg PO DAILY 3 Days #3 tablet 09/04/19 History of Present Illiness History of Present Illness: BRITTANEY KENNY is a 54 year old male who presents the emergency room with a 4-day history of swelling in his right arm. He admits the sudden onset and constant presence of moderate swelling in his right upper arm accompanied by constant numbness and moderate achy discomfort throughout the right upper extremity. He admits the associated symptoms of an intermittent nonproductive cough, generalized malaise, nausea with vomiting and occasional diarrhea/loose stools for the last 4 days. He denies other associated or accompanying signs and symptoms. His right upper extremity is comfort is worsened by movement and improved with rest. He denies prior similar episodes. He has not identified any additional aggravating or ameliorating factors for his right upper extremity swelling. In the emergency room he was found to have an unremarkable evaluation with the exception of an elevated CPK and liver function tests. He was tested for COVID-19. He was subsequently admitted for further evaluation and treatment. Hospital Course Hospital Course: (1) Rhabdomyolysis Qualifiers: Rhabdomyolysis type: non-traumatic Qualified Code(s): M62.82 - Rhabdomyolysis Is this a current diagnosis for this admission?: Yes Plan: 09/01/2019 The patient was wondering why this happened to his arm. 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 He also admits that he was likely dehydrated. Fortunately with aggressive IV fluids his creatinine kinase is down to 8600 from over 11,000. As noted above his urine is still tea colored. We will continue with aggressive IV fluids and repeat his creatinine kinase levels tomorrow. 09/02/2019 Creatinine kinase continues to come down. It has dropped below 6000. Unfortunately the arm is slightly more swollen and tender. Unfortunately the IV fluids had a fixed volume and so I have restarted IV fluids and this will undoubtedly help. Pain medications have been changed. I have also ordered warm compresses. Because of the increased swelling I have ordered another CT scan of the right arm to rule out any new pathology. 09/03/2019 Creatinine kinase total is 5400. This is slightly increased from yesterday. I believe it has to do with the gap in IV fluids. Clinically the arm is better. I do not feel we need a CT scan at this point. We will continue aggressive IV fluids and I will start daily Solu-Medrol dosing. 09/04/2019 Creatinine kinase is down to 2000. Will discharge to home. He needs to stay well-hydrated and rest the arm this week. I will prescribe prednisone 20 mg daily for 3 more days since the IV steroids were so helpful. (2) Hepatitis C Qualifiers: Viral hepatitis chronicity: chronic Hepatic coma status: without hepatic coma Qualified Code(s): B18.2 - Chronic viral hepatitis C Is this a current diagnosis for this admission?: Yes Plan: 09/01/2019 The patient has significant transaminase elevation. AST is 663 and his ALT is 204. There is also alcohol dependence and so it is hard to know how much is hepatitis A and how much is alcoholic hepatitis. Continue conservative management. Monitor transaminases. 09/02/2019 We will repeat liver function panel tomorrow. We will also check INR. If the patient has auto anticoagulation from liver disease he could be having bleeding in the right arm. Will monitor closely. 09/03/2019 Transaminases are much improved. AST was 663 on admission and is now 392. ALT was 204 on admission and is now 136. Total bilirubin did increase slightly from 1.2-1.5. Continue to monitor. Try to avoid hepatotoxic medications and adjust medications metabolized through the liver. (3) Alcohol dependence Qualifiers: Substance use status: uncomplicated Qualified Code(s): F10.20 - Alcohol dependence, uncomplicated Is this a current diagnosis for this admission?: Yes Plan: 09/01/2019 Monitor for signs of withdrawal. He is on scheduled and as needed Valium. 09/02/2019 Continue to monitor. No evidence of withdrawal at this time. 09/03/2019 The scheduled Valium is catching up with the patient and he is quite groggy. I will change the Valium to as needed with an oral dose offered primarily and if unable then an IV dose will be available. (4) Nausea and vomiting Qualifiers: Vomiting type: unspecified Is this a current diagnosis for this admission?: Yes Plan: 09/01/2019 Patient reports no more nausea or vomiting at this point. 09/02/2019 No further nausea or vomiting. Medications available as needed. 09/03/2019 Resolved (5) Nonproductive cough Is this a current diagnosis for this admission?: Yes Plan: 09/01/2019 Conservative approach. Could be related to smoking. 09/02/2019 Appears to have improved. I do not expect it to resolve completely. 09/03/2019 Note acute change (6) Malaise Is this a current diagnosis for this admission?: Yes Plan: 09/01/2019 Not surprising considering the multiple comorbidities. This should improve with resolution of his rhabdomyolysis 09/02/2019 Patient is more animated today. This is from the increase in pain. We will continue supportive care. 09/03/2019 Today I believe he is lethargic from medications. We will decrease the Valium as outlined above. (7) Tobacco use disorder, severe, dependence Is this a current diagnosis for this admission?: Yes Plan: 09/01/2019 Continue nicotine patch 09/03/2019 Nicotine patch Physical Exam Vital Signs: Temp Pulse Resp BP Pulse Ox 97.2 F 52 L 16 144/86 H 98 09/04/19 08:00 09/04/19 08:00 09/04/19 08:00 09/04/19 08:00 09/04/19 08:00 Intake & Output 09/03/19 09/04/19 09/05/19 06:59 06:59 06:59 Intake Total 4230 Output Total 450 Balance 3780 Weight 74.3 kg 74.6 kg General appearance: PRESENT: no acute distress Musculoskeletal exam: PRESENT: other - The right arm is much softer overall. The proximal forearm is less swollen. There is less tenderness. Results Laboratory Results: WBC 4.9 10^3/uL (4.0-10.5) 09/03/19 05:50 RBC 4.25 10^6/uL (4.35-5.55) L 09/03/19 05:50 Hgb 13.7 g/dL (13.5-17.0) 09/03/19 05:50 Hct 39.3 % (37.9-51.0) 09/03/19 05:50 MCV 92 fl (80-97) 09/03/19 05:50 MCH 32.2 pg (27.0-33.4) 09/03/19 05:50 MCHC 34.8 g/dL (32.0-36.0) 09/03/19 05:50 RDW 14.1 % (11.5-14.0) H 09/03/19 05:50 Plt Count 130 10^3/uL (150-450) L 09/03/19 05:50 Lymph % (Auto) 12.7 % (13-45) L 08/31/19 11:20 Mcdonough % (Auto) 8.2 % (3-13) 08/31/19 11:20 Eos % (Auto) 0.1 % (0-6) 08/31/19 11:20 Baso % (Auto) 0.7 % (0-2) 08/31/19 11:20 Absolute Neuts (auto) 9.6 10^3/uL (1.7-8.2) H 08/31/19 11:20 Absolute Lymphs (auto) 1.6 10^3/uL (0.5-4.7) 08/31/19 11:20 Absolute Monos (auto) 1.0 10^3/uL (0.1-1.4) 08/31/19 11:20 Absolute Eos (auto) 0.0 10^3/uL (0.0-0.6) 08/31/19 11:20 Absolute Basos (auto) 0.1 10^3/uL (0.0-0.2) 08/31/19 11:20 Seg Neutrophils % 78.3 % (42-78) H 08/31/19 11:20 ESR 37 mm/hr (0-20) H 09/03/19 05:50 PT 11.8 SEC (11.4-15.4) 09/03/19 05:50 INR 0.87 09/03/19 05:50 Sodium 137.1 mmol/L (137-145) 09/03/19 05:50 Potassium 4.8 mmol/L (3.6-5.0) 09/03/19 05:50 Chloride 104 mmol/L (98-107) 09/03/19 05:50 Carbon Dioxide 28 mmol/L (22-30) 09/03/19 05:50 Anion Gap 5 (5-19) 09/03/19 05:50 BUN 10 mg/dL (7-20) 09/03/19 05:50 Creatinine 0.49 mg/dL (0.52-1.25) L 09/03/19 05:50 Est GFR ( Amer) > 60 (>60) 09/03/19 05:50 Est GFR (MDRD) Non-Af > 60 (>60) 09/03/19 05:50 Glucose 166 mg/dL (75-110) H 09/03/19 05:50 Calcium 9.0 mg/dL (8.4-10.2) 09/03/19 05:50 Magnesium 2.2 mg/dL (1.6-2.3) 09/03/19 05:50 Total Bilirubin 1.5 mg/dL (0.2-1.3) H 09/03/19 05:50 Direct Bilirubin 0.1 mg/dL (0.0-0.4) 09/03/19 05:50 Neonat Total Bilirubin Not Reportable 09/03/19 05:50 Neonat Direct Bilirubin Not Reportable 09/03/19 05:50 Neonat Indirect Bili Not Reportable 09/03/19 05:50 AST 392 U/L (17-59) H 09/03/19 05:50 ALT 136 U/L (<50) H 09/03/19 05:50 Alkaline Phosphatase 71 U/L (38-126) 09/03/19 05:50 Creatine Kinase 2054 U/L (55-170) H 09/04/19 05:06 CK-MB (CK-2) 22.00 ng/mL (<4.55) H 09/02/19 06:02 Troponin I < 0.012 ng/mL 08/31/19 11:20 Total Protein 7.1 g/dL (6.3-8.2) 09/03/19 05:50 Albumin 3.6 g/dL (3.5-5.0) 09/03/19 05:50 TSH 4.83 uIU/mL (0.47-4.68) H 09/01/19 06:10 Urine Color YELLOW 09/01/19 21:44 Urine Appearance CLEAR 09/01/19 21:44 Urine pH 6.0 (5.0-9.0) 09/01/19 21:44 Ur Specific [place] 1.012 09/01/19 21:44 Urine Protein NEGATIVE mg/dL (NEGATIVE) 09/01/19 21:44 Urine Glucose (UA) NEGATIVE mg/dL (NEGATIVE) 09/01/19 21:44 Urine Ketones NEGATIVE mg/dL (NEGATIVE) 09/01/19 21:44 Urine Blood NEGATIVE (NEGATIVE) 09/01/19 21:44 Urine Nitrite (Reflex) NEGATIVE (NEGATIVE) 09/01/19 21:44 Urine Bilirubin NEGATIVE (NEGATIVE) 09/01/19 21:44 Urine Urobilinogen NEGATIVE mg/dL (<2.0) 09/01/19 21:44 Leukocyte Esterase Rfl NEGATIVE (NEGATIVE) 09/01/19 21:44 Urine WBC (Reflex) < 1 /HPF 09/01/19 21:44 Squamous Epi Cells Auto <1 /HPF 09/01/19 21:44 Urine Mucus (Auto) RARE /LPF 09/01/19 21:44 Urine Ascorbic Acid NEGATIVE (NEGATIVE) 09/01/19 21:44 Serum Alcohol < 10 mg/dL (NONE DETECTED) 08/31/19 11:20 COVID-19 Source NASOPHARYNGEAL 08/31/19 12:00 COVID-19 ([place]) NOT DETECTED 08/31/19 12:00 08/31/19 09/01/19 09/01/19 11:20 06:10 19:00 CK-MB (CK-2) 59.20 H 29.30 H Troponin I < 0.012 09/02/19 06:02 CK-MB (CK-2) 22.00 H Troponin I Impressions: Chest X-Ray 08/31/19 11:46 IMPRESSION: No evidence of acute cardiopulmonary abnormality. Incidental finding of subacute mildly displaced transverse fractures of right ribs 9 and 10. Head CTA 08/31/19 11:46 IMPRESSION: NO CTA EVIDENCE OF STENOSIS OR ANEURYSM OF THE [place]. Neck CTA 08/31/19 11:46 IMPRESSION: NORMAL CTA OF THE EXTRA-CRANIAL CAROTID AND VERTEBRAL ARTERIES. Venous Doppler Study 08/31/19 14:57 IMPRESSION: NO EVIDENCE DVT OR SVT IN THE RIGHT ARM. Shoulder X-Ray 08/31/19 14:58 IMPRESSION: Mild acromioclavicular arthropathy. No evidence of acute osseous injury. Upper Extremity CT 08/31/19 20:09 IMPRESSION: Focal soft tissue swelling of the right upper extremity, but without evidence of osteomyelitis, fracture, or foreign body. 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 He needs to stay well-hydrated. With underlying hepatitis C and elevated transaminases he should avoid acetaminophen Plan of Treatment: Discharge to home. Prednisone 20 mg daily for 3 days. Rest the arm through this weekend begin work Sunday, September 08, 2019 Goals: Complete resolution of rhabdomyolysis. Stay well-hydrated to avoid recurrence. Time Spent: Greater than 30 Minutes Stroke Is this a Stroke Patient?: No Acute Heart Failure - Is this a Heart Failure Patient?: No
[2019-09-04] MEDS: FAMOTIDINE 20 MG TABLET PO SCH (09:28)
[2019-09-04] MEDS: METHYLPREDNISOLONE INJ 40 MG/1 ML SDV IV SCH (09:28)
[2019-09-04] MEDS: LOSARTAN POTASSIUM 25 MG TABLET PO SCH (09:28)
[2019-09-04] MEDS: DOCUSATE SODIUM 100 MG CAPSULE PO SCH (09:28)
== END 2019-09-04 10:50 | disposition home or self-care (01) | DRG 558 ==
LOC: ER 10:34 → EH 21:02 → 3N 23:14 → 4W 09-03 10:32
PROVIDERS: ADMIT Emergency Medicine; ATTEND Hospitalist
DX: M62.82 Rhabdomyolysis (principal); B18.2 Chronic viral hepatitis C; K70.10 Alcoholic hepatitis without ascites; F17.200 Nicotine dependence, unspecified, uncomplicated; I10 Essential (primary) hypertension; F32.9 Major depressive disorder, single episode, unspecified; M79.89 Other specified soft tissue disorders; F10.20 Alcohol dependence, uncomplicated; R05 Cough; R11.2 Nausea with vomiting, unspecified; R53.83 Other fatigue; R20.0 Anesthesia of skin; Z20.828 Contact with and (suspected) exposure to other viral communicable diseases; Z71.6 Tobacco abuse counseling; Z82.49 Family history of ischemic heart disease and other diseases of the circulatory system; Z83.3 Family history of diabetes mellitus
CPT/HCPCS: 36415; 70496; 70498; 71045; 80048; 80053; 80076; 80307; 81001; 82550; 82553; 83735; 84443; 84484; 85025; 85027; 85610; 85652; 87040; 87077; 87150; 87186; 87635; 93005; 93010; 93971; 96361; 96374; 96375; 99285; C9803; J0360; J0696; J1170; J1644; J2270; J2405; J2550; J2920; J3230; J3360; J3490; J7030; J7120

== ENCOUNTER 2019-09-09 19:12 | Emergency (ER) | payer BC, MEDICAID ==
--- NOTE | 2019-09-09 20:43 | ER Document Report ---
ED Medical Screen (RME) - General Chief Complaint: Psych Problem Stated Complaint: SUICIDAL IDEATION, PSYCH EVAL, SHORTNESS OF BREATH Time Seen by Provider: 09/09/19 20:34 Notes: HPI: 54-year-old male with alcoholism history presenting to the emergency department with multiple complaints. Patient complains of pain in the right upper quadrant since July 2019 states he was told he had a gallstone believes this might be the issue. Patient admits to drinking alcohol every day last drink was several hours ago, drinks at least 5 or 6 alcoholic drinks daily. Patient admits to fleeting thoughts of self-harm but does not have a specific plan. Patient states that his employer has told him that he believes that he is the devil. Patient also complaining of chronic numbness tingling issues in the right arm and shoulder region PHYSICAL EXAMINATION: Patient difficult to keep on topic. Somewhat easily distracted. Patient mild tenderness with palpation I have greeted and performed a rapid initial assessment of this patient. A comprehensive ED assessment and evaluation of the patient, analysis of test results and completion of medical decision making process will be conducted by an additional ED providers. TRAVEL OUTSIDE OF THE [place] IN LAST 30 DAYS: No - Related Data Allergies/Adverse Reactions: No Known Allergies Allergy (Unverified 07/04/19 16:31) Past Medical History - Past Medical History Cardiac Medical History: Reports: Hx Hypertension Denies: Hx Atrial Fibrillation, Hx Congestive Heart Failure, Hx Coronary Artery Disease, Hx Heart Attack, Hx Hypercholesterolemia, Hx Peripheral Vascular Disease Pulmonary Medical History: Denies: Hx Asthma, Hx COPD Neurological Medical History: Denies: Hx Seizures Endocrine Medical History: Denies: Hx Diabetes Mellitus Type 1, Hx Diabetes Mellitus Type 2, Hx Hyperthyroidism, Hx Hypothyroidism GI Medical History: Reports: 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 Denies: Hx Crohn's Disease, Hx Gastroesophageal Reflux Disease, Hx Ulcerative Colitis Musculoskeltal Medical History: Denies Hx Arthritis, Denies Hx Gout Skin Medical History: Denies Hx Eczema, Denies Hx Psoriasis Psychiatric Medical History: Reports: Hx Depression Infectious Medical History: Reports: Hx Hepatitis - Chronic due to hepatitis C Past Surgical History: Reports: Hx Orthopedic Surgery - left knee x2 Physical Exam - Vital signs Vitals: Temp Pulse Resp BP Pulse Ox 98.0 F 92 16 132/73 H 98 09/09/19 19:49 09/09/19 19:49 09/09/19 19:49 09/09/19 19:49 09/09/19 19:49 Course - Vital Signs Vital signs: Temp Pulse Resp BP Pulse Ox 98.0 F 92 16 132/73 H 98 09/09/19 19:49 09/09/19 19:49 09/09/19 19:49 09/09/19 19:49 09/09/19 19:49
[2019-09-09 21:24] LABS: ABSOLUTE BASOPHILS # (AUTO) 0.1 10^3/uL (0.0-0.2); ABSOLUTE EOSINOPHILS # (AUTO) 1.1 10^3/uL (0.0-0.6); ABSOLUTE LYMPHOCYTES (AUTO) 2.1 10^3/uL (0.5-4.7); ABSOLUTE MONOCYTES (AUTO) 0.7 10^3/uL (0.1-1.4); ABSOLUTE NEUT (AUTO) 3.8 10^3/uL (1.7-8.2); BASOPHILS % (AUTO) 0.7 % (0-2); EOSINOPHILS % (AUTO) 14.2 % (0-6); HEMATOCRIT 44.3 % (37.9-51.0); HEMOGLOBIN 15.4 g/dL (13.5-17.0); LYMPHOCYTES % (AUTO) 26.4 % (13-45); MEAN CORPUSCULAR HEMOGLOBIN 31.9 pg (27.0-33.4); MEAN CORPUSCULAR HGB CONC 34.8 g/dL (32.0-36.0); MEAN CORPUSCULAR VOLUME 92 fl (80-97); MONOCYTES % (AUTO) 9.6 % (3-13); PLATELET COUNT 220 10^3/uL (150-450); RED BLOOD COUNT 4.83 10^6/uL (4.35-5.55); RED CELL DISTRIBUTION WIDTH 14.3 % (11.5-14.0); SEGMENTED NEUTROPHILS % (AUTO) 49.1 % (42-78); TOTAL CELLS COUNTED % (AUTO) 100 %; WHITE BLOOD COUNT 7.8 10^3/uL (4.0-10.5)
[2019-09-09 21:46] LABS: APPEARANCE,URINE CLEAR; BILIRUBIN,URINE NEGATIVE (NEGATIVE); COLOR,URINE STRAW; GLUCOSE, URINE NEGATIVE (NEGATIVE); KETONES,URINE NEGATIVE (NEGATIVE); LEUKOCYTE ESTERASE,URINE NEGATIVE (NEGATIVE); NITRITE,URINE NEGATIVE (NEGATIVE); PROTEIN,URINE NEGATIVE (NEGATIVE); URINE SPECIFIC GRAVITY 1.003; UROBILINOGEN,URINE NEGATIVE mg/dL (<2.0)
[2019-09-09 21:48] LABS: ALBUMIN 4.3 g/dL (3.5-5.0); ALCOHOL 80 mg/dL (NONE DETECTED); ALKALINE PHOSPHATASE 85 U/L (38-126); ANION GAP 11 (5-19); ASPARTATE AMINO TRANSFERASE 109 U/L (17-59); BILIRUBIN,DIRECT 0.1 mg/dL (0.0-0.4); BILIRUBIN,TOTAL 1.1 mg/dL (0.2-1.3); BLOOD UREA NITROGEN 10 mg/dL (7-20); CALCIUM 9.2 mg/dL (8.4-10.2); CARBON DIOXIDE 23 mmol/L (22-30); CHLORIDE 107 mmol/L (98-107); GLUCOSE 90 mg/dL (75-110); POTASSIUM 4.5 mmol/L (3.6-5.0); TOTAL PROTEIN 8.2 g/dL (6.3-8.2)
[2019-09-09 21:49] LABS: ACETAMINOPHEN < 10 ug/mL (10-30); SALICYLATE < 1.0 mg/dL (2.0-20.0)
[2019-09-09 22:05] LABS: URINE AMPHETAMINES SCREEN NEGATIVE; URINE BARBITURATES SCREEN NEGATIVE; URINE COCAINE SCREEN NEGATIVE; URINE MARIJUANA (THC) SCREEN NEGATIVE; URINE METHADONE SCREEN NEGATIVE; URINE PHENCYCLIDINE SCREEN NEGATIVE
[2019-09-09 22:11] LABS: URINE BENZODIAZEPINES SCREEN UNCONFIRMED POSITIVE
--- NOTE | 2019-09-09 22:11 | EKG REPORT ---
SEVERITY:- NORMAL ECG - SINUS RHYTHM : Confirmed by: Briseida Mcdonald MD 09-Sep-2019 22:10:58
[2019-09-10] MEDS ORDERED: IBUPROFEN 600 MG TABLET PO ONE
--- NOTE | 2019-09-10 05:38 | ER Document Report ---
Entered by MARISEL COSTA SCRIBE 09/10/19 0000 Acting as scribe for:ÁNGELA JOSHUA IV, MD ED General - General Chief Complaint: Psych Problem Stated Complaint: SUICIDAL IDEATION, PSYCH EVAL, SHORTNESS OF BREATH Time Seen by Provider: 09/09/19 20:34 Mode of Arrival: Ambulatory Information source: Patient Notes: This 54 year old male patient with a history of chronic ETOH abuse presents to the ED today requesting assistance with detox at [facility]. Patient denies SI, stating that he was "stressed a little bit...I don't want to hurt myself." He also notes pain to his RUQ, RUE, and jaw. TRAVEL OUTSIDE OF THE [place] IN LAST 30 DAYS: No - Related Data Allergies/Adverse Reactions: No Known Allergies Allergy (Unverified 07/04/19 16:31) Home Medications: states is out of meds Past Medical History - General Information source: Patient - Social History Smoking Status: Current Every Day Smoker Cigarette use (# per day): Yes Chew tobacco use (# tins/day): No Smoking Education Provided: No Frequency of alcohol use: daily 5-6 beers Family History: Reviewed & Not Pertinent Patient has suicidal ideation: No Patient has homicidal ideation: No - Past Medical History Cardiac Medical History: Reports: Hx Hypertension GI Medical History: Reports: Hx 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, Hx Hepatitis - Chronic due to hepatitis C Psychiatric Medical History: Reports: Hx Depression Infectious Medical History: Reports: Hx Hepatitis - Chronic due to hepatitis C Past Surgical History: Reports: Hx Orthopedic Surgery - left knee x2 Review of Systems - Review of Systems EENT: See HPI, Other - Jaw pain Cardiovascular: No symptoms reported Respiratory: No symptoms reported Gastrointestinal: See HPI, Abdominal pain Genitourinary: No symptoms reported Male Genitourinary: No symptoms reported Musculoskeletal: See HPI, Other - RUE pain Skin: No symptoms reported Hematologic/Lymphatic: No symptoms reported Neurological/Psychological: See HPI. denies: Suicidal ideation Physical Exam - Vital signs Vitals: Temp Pulse Resp BP Pulse Ox 98.0 F 92 16 132/73 H 98 09/09/19 19:49 09/09/19 19:49 09/09/19 19:49 09/09/19 19:49 09/09/19 19:49 - General General appearance: Alert In distress: None - HEENT Head: Normocephalic, Atraumatic Eyes: Normal Pupils: PERRL - Respiratory Respiratory status: No respiratory distress Chest status: Nontender Breath sounds: Normal Chest palpation: Normal - Cardiovascular Rhythm: Regular Heart sounds: Normal auscultation Murmur: No Friction rub: No Gallop: None auscultated - Abdominal Inspection: Normal Distension: No distension Bowel sounds: Normal Tenderness: Nontender - Abdomen soft Organomegaly: No organomegaly - Back Back: Normal, Nontender - Extremities General upper extremity: Normal inspection General lower extremity: Normal inspection. No: Edema - Neurological Neuro grossly intact: Yes Orientation: AAOx4 Vitaliy Coma Scale Eye Opening: Spontaneous Vitaliy Coma Scale Verbal: Oriented [place] Coma Scale Motor: Obeys Commands Vitaliy Coma Scale Total: 15 - Psychological Associated symptoms: Normal affect, Normal mood - Skin Skin Temperature: Warm Skin Moisture: Dry Skin Color: Normal Course - Re-evaluation Re-evalutation: 09/10/19 05:47 Results of ED MSE discussed with patient. - Vital Signs Vital signs: Temp Pulse Resp BP Pulse Ox 98.0 F 92 16 132/73 H 98 09/09/19 19:49 09/09/19 19:49 09/09/19 19:49 09/09/19 19:49 09/09/19 19:49 - Laboratory Result Diagrams: 09/09/19 21:05 09/09/19 21:05 Laboratory results interpreted by me: 09/09/19 09/09/19 21:05 21:05 RDW 14.3 H Eos % (Auto) 14.2 H Absolute Eos (auto) 1.1 H AST 109 H ALT 107 H Salicylates < 1.0 L Acetaminophen < 10 L Discharge - Discharge Clinical Impression: Alcohol dependence Qualifiers: Substance use status: uncomplicated Qualified Code(s): F10.20 - Alcohol depe ndence, uncomplicated Condition: Stable Disposition: OTHER I personally performed the services described in the documentation, reviewed and edited the documentation which was dictated to the scribe in my presence, and it accurately records my words and actions.
[2019-09-10] MEDS ORDERED: KETOROLAC TROMETHAMINE 60 MG/2 ML SDV IM ONE (07:05)
--- NOTE | 2019-09-10 07:37 | ER Document Report ---
Doctor's Note Notes: 09/10/19 07:36 Chart review showed that patient's abdominal ultrasound has not had a radiology report yet. I called ultrasound to inquire about this. They will contact the radiologist and have this read. The test was done last night around 2200.
--- NOTE | 2019-09-10 07:43 | RADIOLOGY REPORT (SQ) ---
EXAM DESCRIPTION: US ABDOMEN LIMITED COMPLETED DATE/TME: 09/09/2019 20:41 CLINICAL HISTORY: 54 years Male, ruq pain Comparison: None. LIMITATIONS: None. FINDINGS: Cholelithiasis including possible 0.8 cm stone at the gallbladder neck, negative sonographic Claros's test, gallbladder partially decompressed, 0.2 cm gallbladder wall thickness, and no pericholecystic fluid, moderate hepatic steatosis, a 0.4-cm diameter common bile duct, no intrahepatic ductal dilation, hepatopetal patent flow of the portal vein, 11-cm right kidney, pancreas, visualized vasculature/abdominal aorta, and no significant ascites appear otherwise unremarkable. IMPRESSION: 1. Cholelithiasis including possible stone at the gallbladder neck which may contribute to biliary colic. 2. Hepatic steatosis.
--- NOTE | 2019-09-10 12:29 | ER Document Report ---
Doctor's Note Notes: 09/10/19 12:28 Patient's vital signs are previous labs, diagnostic imaging reviewed. Reviewed mental health notes, nurses notes and previous vital signs. Patient is in no distress at this time denies any SI or HI. AST is 109, ALT is 107. His right upper quadrant ultrasound shows cholelithiasis and hepatic steatosis. General: alert, oriented, no acute distress Heart: RRR Lungs: CTABL Psych: good insite Abdomen: Non tender. Mouth: tenderness to left lower back gum, broken molar Extremity: Tenderness along posterior shoulder A&P: I discussed with patient the findings of his ultrasound and xray. He will need to follow up with a surgeon for his gall bladder and follow up with his primary care for further evaluation of liver enzymes and follow up with a dentist for tooth abscess. Is medically cleared at this time.
[2019-09-10] MEDS ORDERED: ACETAMINOPHEN 325 MG TABLET PO ONE (12:42)
[2019-09-10] MEDS ORDERED: KETOROLAC TROMETHAMINE INJ/PF 30 MG/1 ML SDV IM ONE (13:45)
--- NOTE | 2019-09-10 13:54 | ER Document Report ---
Doctor's Note Notes: 09/10/19 13:49 Patient's vital signs are previous labs, diagnostic imaging reviewed. Reviewed mental health notes, nurses notes and previous vital signs. Patient reports that he has right shoulder pain going on for 2 to 3 weeks. States he also has some left jaw pain. Has a history of tooth abscesses. I discussed with him his ultrasound shows gallstones. He states that he occasionally has gall attacks. Denies any SI or HI. General: In pain ENT: tender to palpation along right lower jaw line. Cracked molar Heart: Regular rate rhythm Lungs: CTABL Extremities: Right shoulder pain to lateral shoulder and tricep. Neurologically in tact Abdomen: soft, ttp in RUQ. Negative Claros's Psych: frustrated A&P: I have gone ahead and ordered an x-ray of his right shoulder. Believe patient has a tooth abscess. Also started him on penicillin. He has gallstones. I suspect he has a gallstone attack right now but he is afebrile. He has a 0.2 cm gallbladder thickness. And a 0.4 common bile duct. He also has no elevated white count.
--- NOTE | 2019-09-10 14:14 | RADIOLOGY REPORT (SQ) ---
EXAM DESCRIPTION: SHOULDER RIGHT 2 OR MORE VIEWS IMAGES COMPLETED DATE/TIME: 09/10/2019 2:04 pm REASON FOR STUDY: right shoulder pain COMPARISON: 08/31/2019 NUMBER OF VIEWS: Three views. TECHNIQUE: Internal rotation, external rotation, and Y view images acquired of the right shoulder. LIMITATIONS: None. FINDINGS: MINERALIZATION: Normal. BONES: No acute fracture. No worrisome bone lesions. JOINTS: No dislocation. Mild AC and glenohumeral joint arthrosis. VISUALIZED LUNGS AND RIBS: No pneumothorax. No rib fracture. SOFT TISSUES: No radiopaque foreign body. OTHER: No other significant finding. IMPRESSION: NO RADIOGRAPHIC EVIDENCE OF ACUTE INJURY. TECHNICAL DOCUMENTATION: JOB ID: [id number] [employer]- All Rights Reserved Reading location - IP/workstation name: [email or web address]
--- NOTE | 2019-09-10 16:45 | ER Document Report ---
Doctor's Note Notes: 09/10/19 16:43 Patient's right shoulder x-ray shows mild before meals and glenohumeral joint arthrosis. Patient reports that he has had improvement in his abdominal pain. He continues to have tooth pain. Patient states he has had improved symptoms of his abdominal pain he is medically cleared. I did discuss with patient that he will need to follow-up with a primary care provider. And that he will also need to follow-up with the surgeon to have his gallbladder removed as he continues to have gallstone attacks. Currently he has no signs of a surgical abdomen at this time. I will also discharge him with a prescription for penicillin for his likely tooth abscess. I also discussed at length that he will need to follow-up with a dentist to resolve this issue. Patient is now cleared cleared. He can take Tylenol and ibuprofen for pain relief. Patient acknowledges and verbalizes understanding of instructions and plan all questions answered. Patient will be discharged.
[2019-09-10 17:04] VITALS: BP 154/94
[2019-09-10] MEDS ORDERED: PENICILLIN V POTASSIUM 500 MG TABLET PO SCH (18:00)
--- NOTE | 2019-09-12 13:25 | PSYCHOLOGICAL NOTE ---
Psych Note - Psych Note Date seen by psych provider: 09/10/19 Time seen by psych provider: 10:49 - [address] [facility] about bed avilability. [id number]. Psych Note: Patient is a 54 year old male who presented to the ED last evening via POV for suicidal ideation due to being in pain and out of medications. He initially presented for pain in upper right quadrant area of back, gall stones, pain and swelling of right arm, toothache and suicidal ideation. All other documentation noted patient denied suicidal ideation. He reported to medical staff being under a lot of stress, admitted to having 5-6 beers yesterday and his plan was to go to [facility]. Medical staff called [place] at [phone] but no bed availability. Medical documentation noted patient wanted and asked for pain medication. UDS was positive for benzodiazepines and Serum Alcohol Level was 80. Chart review revealed patient has been to the ED 3 other times: 08/31/2019 for acute rhabdo with Chronic Hepatitis C, 07/07/2019 for abdominal pain and medical clearance to go back to [facility], and 07/04/2019 after being found unresponsive with a Serum Alcohol level of 397. At 1049 called [facility], spoke to Linh, no male beds available but projected discharges for later or tomorrow. Patient identified he still has desire to go to [facility] for detox and confirmed he had been there previously. He denied current suicidal ideation and stated "I had not thoughts, I wasn't going to try to hurt myself, she misunderstood me, I have fleeting thoughts at times, never any plans, just like everyone else life sucks sometimes." . He admitted to drinking a 6 pack of beer yesterday. Patient reported his main stress right now is pain. he reported "I am in so much pain, they have not done anything for it, if the are not going to help me I just want to leave." He identified "pain in my jaw, my gut and my arm." He stated pain was his main concern. Medical did address pain issues (antibiotic for jaw/need for dental work, x ray for shoulder/arm, to name a few). Once these things were addressed patient said he felt like his concerns were being addressed. He then noted Kita from [facility] [employer] was helping with detox placement. Clinical Presentation: Multiple pain complaints Passive Suicidal Ideation Desire for detox (later patient identified mobile [employer] was helping with) Impression/Plan: Patient is cleared from acute psychiatric services. He denied current suicidal ideation, noted he does have fleeting thoughts at times but has never had a plan, expressed main concerns being his pain and wanting it addressed, confirmed continued desire for detox and identified mobile crisis is involved trying to get him detox treatment. Kita is a mobile electrical maintenance worker for [employer]. Called [facility] to see about bed availability and none yet. Provided patient with the outpatient substance abuse resource sheet which highlighted [employer] MCM number as well as the detox facilities MCM is likely trying to get him into. Also provided information about [facility] and walk in times to in itiate outpatient services. Consulted with Dr. Sunshine regarding the management and care of patient. ED Physician in agreement with recommendations.
== END 2019-09-10 17:03 | disposition home or self-care (01) ==
LOC: ER 19:12
DX: F10.20 Alcohol dependence, uncomplicated (principal); Y90.4 Blood alcohol level of 80-99 mg/100 ml; R45.851 Suicidal ideations; M19.011 Primary osteoarthritis, right shoulder; M25.511 Pain in right shoulder; K04.7 Periapical abscess without sinus; K80.20 Calculus of gallbladder without cholecystitis without obstruction; K76.0 Fatty (change of) liver, not elsewhere classified; F17.210 Nicotine dependence, cigarettes, uncomplicated; I10 Essential (primary) hypertension
CPT/HCPCS: 93005; 99284; 96372; 36415; 80307 ×4; 83690; 85025; 80053; 81001; 73030; 76705; 93010; J1885 ×2

== ENCOUNTER 2019-09-24 20:48 | Inpatient (IN) | payer BC, MEDICAID ==
[~2019-09-24 20:48] MED LIST: ETOMIDATE INJ/PF 20 MG/10 ML SDV IV ONE
[2019-09-24] MEDS ORDERED: VECURONIUM BROMIDE INJ 10 MG VIAL IV ONE (21:06)
[2019-09-24] MEDS ORDERED: LORAZEPAM INJ 2 MG/1 ML VIAL IV ONE (21:07)
[2019-09-24] MEDS ORDERED: SUCCINYLCHOLINE CHLORIDE INJ 200 MG/10 ML VIAL IV ONE (21:15)
[2019-09-24] MEDS ORDERED: ETOMIDATE INJ/PF 20 MG/10 ML SDV IV ONE (21:15)
[2019-09-24] MEDS ORDERED: PROPOFOL 1,000 MG/100 ML INFUS..BTL IV PRN (21:16)
[2019-09-24 21:51] LABS: ABSOLUTE EOSINOPHILS # (AUTO) 0.6 10^3/uL (0.0-0.6); ABSOLUTE LYMPHOCYTES (AUTO) 1.6 10^3/uL (0.5-4.7); ABSOLUTE MONOCYTES (AUTO) 0.5 10^3/uL (0.1-1.4); ABSOLUTE NEUT (AUTO) 3.5 10^3/uL (1.7-8.2); BASOPHILS % (AUTO) 0.6 % (0-2); EOSINOPHILS % (AUTO) 9.2 % (0-6); HEMATOCRIT 42.7 % (37.9-51.0); LYMPHOCYTES % (AUTO) 25.5 % (13-45); MEAN CORPUSCULAR HEMOGLOBIN 32.3 pg (27.0-33.4); MEAN CORPUSCULAR VOLUME 92 fl (80-97); MONOCYTES % (AUTO) 8.5 % (3-13); PLATELET COUNT 161 10^3/uL (150-450); RED BLOOD COUNT 4.63 10^6/uL (4.35-5.55); RED CELL DISTRIBUTION WIDTH 15.1 % (11.5-14.0); SEGMENTED NEUTROPHILS % (AUTO) 56.2 % (42-78); TOTAL CELLS COUNTED % (AUTO) 100 %; WHITE BLOOD COUNT 6.2 10^3/uL (4.0-10.5)
--- NOTE | 2019-09-24 21:54 | RADIOLOGY REPORT (SQ) ---
CLINICAL INDICATION: ETT PLACEMENT. TECHNIQUE: A single portable AP view was obtained of the chest at 2121 hours. COMPARISON: August 31, 2019. FINDINGS: The cardiomediastinal silhouette is prominent. The lungs are grossly clear. No evidence of effusion or pneumothorax. Chronic parenchymal lung change. Old granulomatous disease.. IMPRESSION: Lungs grossly clear. Chronic changes. Endotracheal tube tip in good position. Nasogastric tube tip projects over the stomach but the sidehole project over GE junction, satisfactory for aspiration only..
--- NOTE | 2019-09-24 22:08 | RADIOLOGY REPORT (SQ) ---
INDICATION: ams. Seizure. Pain COMPARISON: July 04, 2019 CORRELATION: None TECHNIQUE: Noncontrast spiral axial CT images were obtained from the skull base to vertex. Noncontrast spiral axial CT imaging through the cervical spine with multiplanar reconstructions. This exam was performed according to our departmental dose-optimization program, which includes automated exposure control, adjustment of the mA and/or kV according to patient size and/or use of iterative reconstruction techniques. FINDINGS: BRAIN: There is no evidence of acute intracranial hemorrhage, midline shift, mass effect or mass lesion. Ruvalcaba-white differentiation is normal. There is no evidence of acute large territory infarct. Ventricles and extracerebral spaces are within normal limits, for age. The visualized paranasal sinuses mild sinusitis. The orbits and eyeballs are unremarkable. The mastoid air cells are clear. Skull base and calvarium appear intact. Apparent orogastric tube. Irregularity to the nasal bones, present previously. CERVICAL SPINE: No acute displaced fracture is identified of the cervical spine. Alignment is anatomic. No focal alignment abnormality is identified. The uncovertebral joints and facets demonstrate age-appropriate osteoarthritis.. Fusion of C6 and C7 Endotracheal tube and nasogastric tube are identified. Patchy interstitial and airspace disease at both lung apices. IMPRESSION: No acute intracranial process is identified. No acute bony injury is seen to the cervical spine. Osteoarthritis
[2019-09-24 22:43] LABS: ALBUMIN 4.2 g/dL (3.5-5.0); ALKALINE PHOSPHATASE 117 U/L (38-126); ANION GAP 13 (5-19); ASPARTATE AMINO TRANSFERASE 187 U/L (17-59); BILIRUBIN,DIRECT 0.1 mg/dL (0.0-0.4); BILIRUBIN,TOTAL 1.1 mg/dL (0.2-1.3); BLOOD UREA NITROGEN 7 mg/dL (7-20); CALCIUM 7.9 mg/dL (8.4-10.2); CARBON DIOXIDE 22 mmol/L (22-30); CHLORIDE 107 mmol/L (98-107); CREATINE KINASE 252 U/L (55-170); GLUCOSE 107 mg/dL (75-110); POTASSIUM 3.9 mmol/L (3.6-5.0); TOTAL PROTEIN 8.4 g/dL (6.3-8.2)
[2019-09-24 22:46] LABS: APPEARANCE,URINE SLIGHTLY-CLOUDY; BILIRUBIN,URINE NEGATIVE (NEGATIVE); COLOR,URINE DARK YELLOW; GLUCOSE, URINE NEGATIVE (NEGATIVE); KETONES,URINE NEGATIVE (NEGATIVE); LEUKOCYTE ESTERASE,URINE NEGATIVE (NEGATIVE); NITRITE,URINE NEGATIVE (NEGATIVE); PROTEIN,URINE 30 mg/dL (NEGATIVE); URINE SPECIFIC GRAVITY 1.025
[2019-09-24 22:51] LABS: URINE AMPHETAMINES SCREEN NEGATIVE; URINE BARBITURATES SCREEN NEGATIVE; URINE COCAINE SCREEN NEGATIVE; URINE METHADONE SCREEN NEGATIVE; URINE PHENCYCLIDINE SCREEN NEGATIVE
[2019-09-24 23:02] LABS: URINE BENZODIAZEPINES SCREEN UNCONFIRMED POSITIVE; URINE MARIJUANA (THC) SCREEN UNCONFIRMED POSITIVE
[2019-09-24] MEDS ORDERED: DIAZEPAM INJ 10 MG/2 ML DISP.SYRIN IV ONE (23:16)
[2019-09-25 00:04] LABS: ARTERIAL BLOOD BASE EXCESS -6.5 mmol/L; ARTERIAL BLOOD H2CO3 1.14 mmol/L (1.05-1.35); ARTERIAL BLOOD O2 SATURATION 99.6 % (94-98); ARTERIAL BLOOD PCO2 37.8 mmHg (35-45); ARTERIAL BLOOD PH 7.32 (7.35-7.45); ARTERIAL BLOOD PO2 276.5 mmHg (80-100); ARTERIAL BLOOD TOTAL CO2 20.1 mmol/L (23-27)
[2019-09-25 00:10] LABS: ARTERIAL BLOOD FIO2 60%
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
[2019-09-25] MEDS ORDERED: DEXTROSE 50%-WATER 25 GM/50 ML DISP.SYRIN IV PRN ×2 (02:49)
[2019-09-25] MEDS ORDERED: GLUCAGON,HUMAN RECOMB 1 MG INJ SUBCUT PRN (02:49)
[2019-09-25] MEDS ORDERED: DEXTROSE 40% GEL 15 GM TUBE PO PRN ×2 (02:49)
[2019-09-25] MEDS ORDERED: DIAZEPAM INJ 10 MG/2 ML DISP.SYRIN IV ONE (03:12)
[2019-09-25] MEDS ORDERED: MIDAZOLAM 2 MG/2 ML INJ IV ONE (03:30)
[2019-09-25] MEDS ORDERED: MIDAZOLAM 2 MG/2 ML INJ ONE (03:33)
[2019-09-25] MEDS ORDERED: PROPOFOL 1,000 MG/100 ML INFUS..BTL IV ONE (03:37)
[2019-09-25] MEDS: PROPOFOL 1,000 MG/100 ML INFUS..BTL IV PRN ×2 (03:40→08:00)
[2019-09-25 04:44] LABS: ABSOLUTE EOSINOPHILS # (AUTO) 0.2 10^3/uL (0.0-0.6); ABSOLUTE LYMPHOCYTES (AUTO) 1.4 10^3/uL (0.5-4.7); ABSOLUTE MONOCYTES (AUTO) 0.4 10^3/uL (0.1-1.4); ABSOLUTE NEUT (AUTO) 4.5 10^3/uL (1.7-8.2); BASOPHILS % (AUTO) 0.4 % (0-2); EOSINOPHILS % (AUTO) 2.7 % (0-6); HEMATOCRIT 41.4 % (37.9-51.0); HEMOGLOBIN 14.6 g/dL (13.5-17.0); LYMPHOCYTES % (AUTO) 21.3 % (13-45); MEAN CORPUSCULAR HEMOGLOBIN 32.4 pg (27.0-33.4); MEAN CORPUSCULAR HGB CONC 35.2 g/dL (32.0-36.0); MEAN CORPUSCULAR VOLUME 92 fl (80-97); MONOCYTES % (AUTO) 6.4 % (3-13); PLATELET COUNT 139 10^3/uL (150-450); RED BLOOD COUNT 4.51 10^6/uL (4.35-5.55); SEGMENTED NEUTROPHILS % (AUTO) 69.2 % (42-78); TOTAL CELLS COUNTED % (AUTO) 100 %; WHITE BLOOD COUNT 6.5 10^3/uL (4.0-10.5)
[2019-09-25 04:53] LABS: ALBUMIN 4.1 g/dL (3.5-5.0); ALKALINE PHOSPHATASE 106 U/L (38-126); ANION GAP 12 (5-19); ASPARTATE AMINO TRANSFERASE 173 U/L (17-59); BILIRUBIN,DIRECT 0.1 mg/dL (0.0-0.4); BLOOD UREA NITROGEN 7 mg/dL (7-20); CARBON DIOXIDE 20 mmol/L (22-30); CHLORIDE 110 mmol/L (98-107); GLUCOSE 89 mg/dL (75-110); POTASSIUM 3.7 mmol/L (3.6-5.0)
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
[2019-09-25] MEDS: HEPARIN SOD (PORCINE) 5,000 UNIT/ML 1 ML VIAL SUBCUT SCH ×3 (05:53→21:24)
[2019-09-25] MEDS ORDERED: GABAPENTIN 400 MG CAPSULE PO ONE (06:15)
[2019-09-25 06:25] LABS: ARTERIAL BLOOD H2CO3 1.18 mmol/L (1.05-1.35); ARTERIAL BLOOD HCO3 21.2 mmol/L (20-24); ARTERIAL BLOOD O2 SATURATION 98.5 % (94-98); ARTERIAL BLOOD PCO2 39.1 mmHg (35-45); ARTERIAL BLOOD PH 7.35 (7.35-7.45); ARTERIAL BLOOD PO2 131.5 mmHg (80-100); ARTERIAL BLOOD TOTAL CO2 22.4 mmol/L (23-27)
[2019-09-25 06:26] LABS: ARTERIAL BLOOD FIO2 30%
[2019-09-25] MEDS ORDERED: DEXMEDETOMIDINE IN 0.9 % NACL 400 MCG/100 ML RTUPB IV ONE (07:53)
[2019-09-25] MEDS: DEXMEDETOMIDINE IN NS 400 MCG/100 ML RTUPB IV PRN ×2 (08:00→13:27)
--- NOTE | 2019-09-25 08:35 | RADIOLOGY REPORT (SQ) ---
EXAM DESCRIPTION: CHEST SINGLE VIEW IMAGES COMPLETED DATE/TIME: 09/25/2019 5:48 am REASON FOR STUDY: Hypoxia, Intubated COMPARISON: 09/24/2019 NUMBER OF VIEWS: One view. TECHNIQUE: Single frontal radiographic image of the chest acquired. LIMITATIONS: None. FINDINGS: LUNGS AND PLEURA: Stable appearance. MEDIASTINUM AND HEART: Stable heart size and mediastinal structures. SUPPORT DEVICES: Appropriate location without change. BONY STRUCTURES: No acute findings. HARDWARE: None. OTHER: No other significant finding. IMPRESSION: STABLE APPEARANCE OF THE CHEST. SUPPORT DEVICES UNCHANGED. Reading location - IP/workstation name: [email or web address]
--- NOTE | 2019-09-25 08:46 | EKG REPORT ---
SEVERITY:- BORDERLINE ECG - SINUS TACHYCARDIA PROBABLE LEFT ATRIAL ABNORMALITY : Confirmed by: Jose Davila MD 25-Sep-2019 08:46:17
--- NOTE | 2019-09-25 08:47 | EKG REPORT ---
SEVERITY:- ABNORMAL ECG - SINUS TACHYCARDIA BIATRIAL ABNORMALITIES : Confirmed by: Jose Davila MD 25-Sep-2019 08:46:30
[2019-09-25] MEDS: GABAPENTIN 400 MG CAPSULE PO SCH ×2 (13:30→21:23)
[2019-09-25] MEDS ORDERED: NICOTINE 21 MG/24 HR PATCH.TD24 TD SCH (16:00)
[2019-09-25] MEDS ORDERED: LORAZEPAM 1 MG TABLET PO ONE (21:43)
[2019-09-26 05:08] LABS: ABSOLUTE EOSINOPHILS # (AUTO) 0.3 10^3/uL (0.0-0.6); ABSOLUTE LYMPHOCYTES (AUTO) 1.3 10^3/uL (0.5-4.7); ABSOLUTE MONOCYTES (AUTO) 0.5 10^3/uL (0.1-1.4); BASOPHILS % (AUTO) 0.6 % (0-2); EOSINOPHILS % (AUTO) 4.4 % (0-6); HEMOGLOBIN 14.5 g/dL (13.5-17.0); LYMPHOCYTES % (AUTO) 21.6 % (13-45); MEAN CORPUSCULAR HEMOGLOBIN 32.2 pg (27.0-33.4); MEAN CORPUSCULAR HGB CONC 35.3 g/dL (32.0-36.0); MEAN CORPUSCULAR VOLUME 91 fl (80-97); MONOCYTES % (AUTO) 7.6 % (3-13); PLATELET COUNT 102 10^3/uL (150-450); RED BLOOD COUNT 4.49 10^6/uL (4.35-5.55); RED CELL DISTRIBUTION WIDTH 14.7 % (11.5-14.0); SEGMENTED NEUTROPHILS % (AUTO) 65.8 % (42-78); TOTAL CELLS COUNTED % (AUTO) 100 %
[2019-09-26 05:35] LABS: ALBUMIN 3.8 g/dL (3.5-5.0); ALKALINE PHOSPHATASE 104 U/L (38-126); ANION GAP 7 (5-19); ASPARTATE AMINO TRANSFERASE 109 U/L (17-59); BILIRUBIN,DIRECT 0.2 mg/dL (0.0-0.4); BILIRUBIN,TOTAL 2.1 mg/dL (0.2-1.3); BLOOD UREA NITROGEN 13 mg/dL (7-20); CALCIUM 8.4 mg/dL (8.4-10.2); CARBON DIOXIDE 25 mmol/L (22-30); CHLORIDE 101 mmol/L (98-107); GLUCOSE 80 mg/dL (75-110); POTASSIUM 3.8 mmol/L (3.6-5.0); TOTAL PROTEIN 7.7 g/dL (6.3-8.2)
[2019-09-26] MEDS: HEPARIN SOD (PORCINE) 5,000 UNIT/ML 1 ML VIAL SUBCUT SCH (06:38)
[2019-09-26] MEDS: GABAPENTIN 400 MG CAPSULE PO SCH (06:43)
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
[2019-09-26 09:24] VITALS: BP 107/63
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
== END 2019-09-26 09:20 | disposition home or self-care (01) | DRG 922 ==
LOC: ER 20:48 → EH 09-25 01:32 → ICU 09-25 03:19
PROVIDERS: ADMIT Internal Medicine Critical Care Medicine; ATTEND Internal Medicine Critical Care Medicine
PROC: 0BH17EZ Insertion of Endotracheal Airway into Trachea, Via Natural or Artificial Opening (ICD-10-PCS; principal; 2019-09-24)
PROC: 5A1935Z Respiratory Ventilation, Less than 24 Consecutive Hours (ICD-10-PCS; 2019-09-24)
DX: T75.1XXA Unspecified effects of drowning and nonfatal submersion, initial encounter (principal); R40.2112 Coma scale, eyes open, never, at arrival to emergency department; R40.2222 Coma scale, best verbal response, incomprehensible words, at arrival to emergency department; J96.01 Acute respiratory failure with hypoxia; F10.129 Alcohol abuse with intoxication, unspecified; W16.011A Fall into swimming pool striking water surface causing drowning and submersion, initial encounter; Y92.59 Other trade areas as the place of occurrence of the external cause; K74.60 Unspecified cirrhosis of liver; G40.909 Epilepsy, unspecified, not intractable, without status epilepticus; B18.2 Chronic viral hepatitis C; I10 Essential (primary) hypertension; F32.9 Major depressive disorder, single episode, unspecified; Z79.899 Other long term (current) drug therapy; F17.200 Nicotine dependence, unspecified, uncomplicated; R40.2352 Coma scale, best motor response, localizes pain, at arrival to emergency department; Z78.1 Physical restraint status
CPT/HCPCS: 36415; 36600; 51702; 70450; 71045; 72125; 80053; 80307; 81001; 82140; 82550; 82803; 82962; 83735; 84484; 85025; 87070; 87186; 87205; 93005; 93010; 94002; 94003; 96374; 96375; 99291; 99292; J0330; J1644; J2060; J2250; J2704; J3360; J3490